=== PATIENT | female | born 1955 | race Caucasian/White ===

== ENCOUNTER 2016-09-18 10:29 | Emergency (ER) | payer SELFPAY ==
[2015-02-10 17:28] VITALS: BMI 36.0
[~2016-09-18 10:29] MED LIST: BAYER CHEWABLE81 MG PO; BYSTOLIC20 MG PO; CARDIZEM LA180 MG PO; CRESTOR10 MG PO; CYCLOBENZAPRINE10 MG PO; DIOVAN HCT 320/1 TA2 PO; NEXIUM40 MG PO; PLAVIX75 MG PO; SYNTHROID75 MCG PO; SYNTHROID88 MCG PO; TENORMIN100 MG PO; TYLENOL ARTHRI650 MG PO; VIMOVO; WELLBUTRIN100 MG PO
[2016-09-18 11:22] LABS: BASOPHILS 0.2 % (0.0-2.0); EOSINOPHILS 1.2 % (0-7); HEMATOCRIT 35.5 % (36.0-48.0); HEMOGLOBIN 11.6 g/dL (12-16); LYMPHOCYTES 22.2 % (15-50); MCH 25.6 pg (26.0-34.0); MCHC 32.7 g/dL (31.0-37.0); MCV 78.2 fL (80.0-100.0); MEAN PLATELET VOLUME 10.3 fL (7.4-10.4); MONOCYTES 5.1 % (2-11); NEUTROPHILS 70.3 % (40-80); PLATELET COUNT 269 10x3/uL (130-400); RBC 4.54 10x6/uL (4.00-5.40); RDW 15.4 % (11.5-14.5); WBC 14.1 10x3/uL (4.8-10.8)
[2016-09-18 11:35] LABS: ALBUMIN 3.4 g/dL (3.4-5.0); ALKALINE PHOSPHATASE 116 U/L (46-116); ALT (SGPT) 42 U/L (10-68); BILIRUBIN - TOTAL 0.21 mg/dL (0.2-1.3); CALC OSMOLALITY 277 mosm/kg (275-300); CALCIUM 8.6 mg/dL (8.5-10.1); CARBON DIOXIDE 23.3 mmol/L (21.0-32.0); CHLORIDE - SERUM 102 mmol/L (98-107); CREATININE - SERUM 1.2 mg/dL (0.6-1.3); GLUCOSE 90 mg/dL (74-106); POTASSIUM - SERUM 3.7 mmol/L (3.5-5.1); PROTEIN - SERUM 7.5 g/dL (6.4-8.2); SODIUM 137 mmol/L (136-145); UREA NITROGEN 23 mg/dL (7-18); eGFR NON AFRICAN AMERICAN 48 mL/min (90-120)
[2016-09-18 11:46] LABS: CHOL - HDL RATIO 2.8 ratio (2.3-4.1); CHOLESTEROL, TOTAL 212 mg/dL (0-200); CKMB 0.9 U/L (0.0-3.6); CREATINE KINASE 76 UL (21-215); HDL CHOLESTEROL 76 mg/dL (32-96); LDL CHOLESTEROL 94 mg/dL (0-100); LDL-HDL RATIO 1.2 ratio (1.5-3.5); TRIGLYCERIDE 210 mg/dL (30-200)
[2016-09-18 11:47] LABS: TROPONIN-I < 0.017 ng/mL (0.000-0.060)
--- NOTE | 2016-09-24 08:46 | CN ---
PATIENT NAME:TARYN GIRON MEDICAL RECORD: [id number] : 55 LOCATION:D.ER ADMIT DATE: ACCOUNT: [id number] CONSULTING PHYSICIAN: DAJA WEAVER MD REFERRING PHYSICIAN: DENY TURCIOS MD DATE OF CONSULTATION: 09/18/2016 Cardiology Consultation DIAGNOSES: 1. Shortness of breath, dyspnea on exertion. 2. Chest pain. 3. Coronary artery disease. 4. Previous multivessel percutaneous transluminal coronary angioplasty stent. 5. Hypertension. 6. Hyperlipidemia. HISTORY OF PRESENT ILLNESS: Ms. Giron presents with shortness of breath, fluid retention, edema and some chest pain over the past day. It is not like that of her previous angina, it is more of a labored breathing. She was taken off of hydrochlorothiazide recently for possible allergic reaction. She has not had a reaction to other diuretic. She has been given Lasix in the past with no problem. Her EKG is normal. Troponin is pending. PHYSICAL EXAMINATION: GENERAL APPEARANCE: Well-nourished, well-developed, appears stated age. Level of distress, comfortable. PSYCHIATRIC: Mental status, alert, normal affect. Orientation, oriented to time, place and person. EYES: Lids and conjunctiva, noninjected. No discharge, no pallor. ENT: Lips, teeth, gums, normal dentition. Oropharynx, no cyanosis, no pallor. NECK: Carotid arteries, bilateral normal upstroke, no bruits, no thrills. JUGULAR VEINS: No jugular venous pressure or distention. CERVICAL LYMPH NODES: Nontender, nonenlarged. THYROID: Not enlarged. Nontender. No nodules. LUNGS: Respiratory effort, unlabored. CHEST: Normal curvature. No thoracic deformity. No chest wall tenderness. Percussion, resonant. Auscultation, clear. No wheezes, no rales, no rhonchi. CARDIOVASCULAR: Precordial exam, nondisplaced. No heaves or pericardial thrills. Rate and rhythm, regular. Heart sounds, normal S1, normal S2. No S3, no gallop, no rub. Systolic murmur, not heard. Diastolic murmur, not heard. EXTREMITIES: No cyanosis, no edema. Peripheral pulses, full and equal in all extremities, except as noted. No bruits appreciated. ABDOMEN: Soft, nondistended. Normal aorta. No bruit. Nontender. No masses. Liver, nontender, no hepatomegaly. Spleen, nontender, no splenomegaly. MUSCULOSKELETAL: No joint tenderness. No joint swelling. No erythema. NEUROLOGICAL: Normal gait, normal strength, normal tone. SKIN: Warm and dry. REVIEW OF SYSTEMS: The patient reports easy bruising but reports no swollen glands. The patient reports no fever, no night sweats, no significant weight gain, no significant weight loss. No significant exercise tolerance. The patient reports no dry eyes, no irritation, no vision change. Patient reports no difficulty hearing and no ear pain. Patient reports no frequent nose bleeds or nose and sinus problems. Patient reports on arm pain on exertion. No CONSULT REPORT [id number] TARYN GIRON shortness of breath while lying down. No history of heart murmur. Patient reports no cough, no wheezing or coughing up blood. Patient reports no abdominal pain, no vomiting. Normal appetite. No diarrhea and not vomiting blood. No nausea and no constipation. Patient reports no incontinence. No difficulty urinating. No hematuria. No increased frequency. Patient reports no muscle aches. No weakness, no arthralgias, no back pain. No swelling of the extremities. Patient reports no abnormal mole, no jaundice, no rashes. Reports no loss of consciousness. No weakness and no numbness. No seizures, dizziness, or headaches. The patient reports no depression, no sleep disturbance, feeling safe in a relationship and no alcohol abuse. Patient reports on fatigue. Reports no runny nose or sinus pressure. No itching, no hives, and no frequent sneezing. OVERALL IMPRESSION: Fluid retention, shortness of breath, most likely is due to being off of her hydrochlorothiazide. We would suggest Lasix 20 mg daily if troponin is normal. Most likely, this is not recurrent anginal symptomatology. Last cardiac catheterization was a year ago. There was no restenosis at that time and no new disease. Her EKG is normal and unchanged. We will follow up in our office in the next 2-3 weeks and see how she is doing on daily Lasix therapy. TRANSINT:[id number] Voice Confirmation ID: [id number] DOCUMENT ID: [id number] DAJA WEAVER MD at 0846 CC: [id number] DICTATION DATE: 09/18/16 1121 CARE GIVER: 09/18/16 1200 DEP ER 09/18/16 [facility] [address] [place] [address]
== END 2016-09-18 12:25 | disposition home or self-care (01) ==
LOC: D.ER 10:29
PROVIDERS: Emergency Medicine
DX: I20.8 Other forms of angina pectoris (principal); R60.9 Edema, unspecified; I10 Essential (primary) hypertension

== ENCOUNTER 2017-01-29 01:08 | Observation (INO) | payer OTHER ==
[~2017-01-29] VITALS: Ht 157.5 cm; Wt 99.8 kg
--- NOTE | ~2017-01-29 | PRO ---
PATIENT:TARYN POLLOCK MEDICAL RECORD: [id number] : 55 LOCATION:D.M2 D.2118 ADMISSION DATE: 01/29/17 PROCEDURE PERFORMED BY: KEISHA OLIVA MD PROCEDURES: 1. Left heart catheterization. 2. Selective coronary angiography. 3. Percutaneous transluminal coronary angioplasty stent. LEFT HEART CATHETERIZATION/SELECTIVE CORONARY ANGIOGRAPHY: PROCEDURE IN DETAIL: After informed consent was obtained and after detailed explanation of risks, benefits, as well as alternative therapies, the patient elected to proceed with angiogram. The right femoral area was prepped and draped in a normal sterile fashion. The right femoral artery was cannulated via modified Seldinger technique with placement of 5-Icelandic sheath. All catheters exchanged through this sheath. Susana Left-4, Susana Left-5, 5-Icelandic pigtail catheter. The procedure was well-tolerated, and the patient was returned to the de luna after the sheath was removed ExoSeal device placed. FINDINGS: Left ventriculography was performed in standard 30 degree SUAREZ view, shows minimal inferior hypokinesis. Overall left ventricular function is preserved at 50% or better. CORONARY ANATOMY: 1. LEFT MAIN: The left main was free of disease. 2. LEFT ANTERIOR DESCENDING: The left anterior descending is free of disease as is the diagonal system. Area of previous stenting is widely patent. 3. CIRCUMFLEX: The circumflex is free of disease. Area of previous stenting is widely patent. 4. RIGHT CORONARY ARTERY: This is a codominant right coronary and at the mid portion of the vessel is totally occluded. IMPRESSION: Acute coronary syndrome non-ST elevation myocardial infarction secondary to total occlusion of the right coronary artery. Plan intervention to this vessel momentarily. PERCUTANEOUS TRANSLUMINAL CORONARY ANGIOPLASTY STENT: A 5-Icelandic sheath was exchanged for a 6-Icelandic sheath. A Hockey Stick guided catheter provided excellent guidance of the catheter forward. This was followed by a 300 centimeter whisper wire placed across the totally occluded right down to the tortuous vessel. Balloon was a 2.[address] Charles balloon, placed down to the distal posterior descending and advanced all the way up to the mid portion of the right coronary artery, two inflations up to 12 atmospheres for a 30 second each inflation. FINAL ANGIOGRAPHY: Shows excellent resolution of a 100% stenosis with no significant residual. MARK flow improved from 0 to 3. Plavix was loaded in the lab. Integrilin was used during the case. Sheath closure ExoSeal device. PROCEDURE NOTE [id number] TARYN POLLOCK GREGORY A MD CC: [id number] DICTATION DATE: 01/31/17 143 RECORD CHANGER ASSEMBLER: TC 01/31/17 1436 DIS IN 01/29/17 [facility] [address] [place] [address]
--- NOTE | ~2017-01-29 | HEMODYNAMI ---
PATIENT:TARYN POLLOCK MEDICAL RECORD: [id number] : 55 LOCATION:[facility] D.2118 [facility]# [id number] ADMISSION DATE: 01/29/17 Generatedon:01/29/201710:20 Patient name: TARYN POLLOCK Patient #: [id number] SSN: : 1955 Date of study: 01/29/2017 Page: Of Hemodynamic Procedure Report Patient Data Patient Demographics Procedure consent was obtained First Name: TARYN Gender: Female Last Name: PHILL : 1955 [facility] Initial: J Age: 61 year(s) Patient #: [id number] Race: Additional ID: [id number] Contact details Address: [address] [place] [address] State: [place] City: [facility] Zip code: [address] Past Medical History Allergies Allergen Reaction Date Comments Reported Penicillins 10/09/2014 Sulfa drugs 10/09/2014 Other allergy 10/09/2014 Microbid Other allergy 10/09/2014 Other allergy 10/09/2014 biaxin Other allergy 10/09/2014 clindamycin Admission Admission Data Admission Date: 01/29/2017 Admission Time: 3:21 Room #: D.2118 Lab Results Lab Result Date: 01/29/2017 Lab Result Time: 0:00 Biochemistry Name Units Result Min Max BUN mg/dl 15 --(--*-)-- 7 18 Creatinine mg/dl 1.3 --(---*)-- 0.6 1.3 CBC Name Units Result Min Max Hemoglobin g/dl 11.2 *-(----)-- 13.5 17.5 Procedure Procedure Types Cath Procedure Diagnostic Procedure LHC LHC w/Coronaries PCI Procedure PTCA Initial Miscellaneous Procedures Moderate Sedation up to 30 minutes Procedure Description Procedure Date Procedure Date: 01/29/2017 Procedure Start Time: 9:56 Procedure End Time: 10:19 Procedure Staff Name Function Hernandez Ann MD Performing Physician Georgia Ortiz RN Nurse Phil Nguyen RT Monitor Giovanna Dobbins RT Scrub Procedure Data Cath Procedure Fluoroscopy Diagnostic fluoroscopy Total fluoroscopy Time: 4.6 time: 4.6 min min Diagnostic fluoroscopy Total fluoroscopy dose: 587 dose: 587 mGy mGy Contrast Material Contrast Material Type Amount (ml) Isovue 300 91 Entry Location Entry Primary Successful Side Size Upsize Upsize Entry Closure Succes sful Closure Location (Fr) 1 (Fr) 2 (Fr) Remarks Device Remarks Femoral Right 5 Fr 6 Fr Exoseal artery Short Estimated blood loss: 10 ml Diagnostic catheters Device Type Used For End Catheter Placement Cordis 5Fr JL 4.0 Procedure Catheter (MP) Cordis 5Fr 3DRC Catheter Procedure (MP) Cordis 5Fr Pigtail Procedure Catheter (MP) Procedure Complications No complications Procedure Medications Medication Administration Route Dosage Oxygen NC 2 l/min Heparin Flush Bag added to field 2 bags (1000units/500ml NS) Lidocaine 2% added to field 20 Versed I.V. 1 mg Fentanyl I.V. 50 mcg Plavix P.O. 600 mg Versed I.V. 1 mg Fentanyl I.V. 50 mcg Heparin Bolus I.V. 5000 units Integrilin (Bolus I.V. 9 ml 2mg/ml) Hemodynamics Rest HGB: 11.2 (g/dl) Heart Rate: 67 (bpm) Pressure Samples Time Site Value (mmHg) Purpose Heart Use Rate(bpm) 10:02 LV 153/15,19 Snapshot 72 10:07 AO 128/80(103) Snapshot 71 Gradients Valve Time Site Site Mean SEP/DFP Peak To Heart Use 1 2 (mmHg) (sec/min) Peak Rate (mmHg) (bpm) Aortic 10:02 LV AO 72 Snapshots Pre Cath Intra NCS Post Cath Vital Signs Time Heart Resp SPO2 etCO2 [id number] NIBP (mmHg) Rhythm Pain Sedation Rate (ipm) (%) (mmHg) (mmHg) Status Level (bpm) 9:42:02 69 14 97 0 0 153/90(114) NSR 0 (11) 10(A) , No pain 9:46:22 67 16 94 0 0 156/93(122) NSR 0 (11) 10(A) , No pain 9:50:38 63 16 96 0 0 145/91(123) NSR 0 (11) 10(A) , No pain 9:54:56 65 19 96 0 0 149/88(117) NSR 0 (11) 9(A) , No pain 9:59:12 68 15 96 0 0 143/95(127) NSR 0 (11) 9(A) , No pain 10:03:26 71 15 96 0 0 136/96(124) NSR 0 (11) 9(A) , No pain 10:07:40 72 13 96 0 0 144/91(111) NSR 0 (11) 9(A) , No pain 10:11:56 73 14 97 0 0 136/82(125) NSR 0 (11) 9(A) , No pain 10:16:10 70 14 97 0 0 133/91(122) NSR 0 (11) 9(A) , No pain Medications Time Medication Route Dose Verified Delivered Reason Notes Effectiveness by by 9:41:00 Plavix P.O. 600 Hernandez [place] for mg [facility]. Pablo Ortiz RN antiplatelet therapy 9:41:24 Oxygen NC 2 Hernandez Georgia Per physician l/min St. Pablo Ortiz RN, MD 9:41:33 Heparin Flush added 2 Hernandez Hernandez used for Bag to bags [facility] procedure (1000units/500ml field MD CRAWFORD NS) 9:41:40 Lidocaine 2% added 20ml Hernandez Hernandez used for to vial [facility] procedure field MD CRAWFORD 9:47:14 Versed I.V. 1 mg Hernandez [place] for sedation [facility]. Pablo Ortiz RN, MD 9:47:19 Fentanyl I.V. 50 Hernandez Georgia for sedation mcg [facility]. Pablo Ortiz RN, MD 9:50:34 Versed I.V. 1 mg Hernandez [place] for sedation [facility]. Pablo Ortiz RN, MD 9:50:36 Fentanyl I.V. 50 Hernandez [place] for sedation mcg [facility]. Pablo Ortiz RN, MD 10:04:13 Heparin Bolus I.V. 5000 Hernandez Georgia for dose units [facility]. Pablo Ortiz RN anticoagulation verified MD dee menchaca 10:06:35 Integrilin I.V. 9 ml Hernandez [place] for wasted 1 (Bolus 2mg/ml) St. Pablo Ortiz RN antiplatelet ml therapy Procedure Log Time Note 9:13:31 Phil Nguyen RT(R) sent for patient. Start room use. 9:13:33 Time tracking: Regular hours 9:13:37 Plan of Care:Hemodynamics will remain stable., Cardiac rhythm will remain stable., Comfort level will be maintained., Respiratory function will remain adequate., Patient/ family verbilizes understanding of procedure., Procedure tolerated without complication., Recovers from procedure without complications.. 9:28:20 Patient received from PCU to CCL 1 Alert and oriented. Tansferred to table in Supine position. 9:28:39 H&P Date Dictated: 01/28/2017 Within 30 days and on chart.. 9:30:42 Lab Result : BUN 15 mg/dl 9::42 Lab Result : Creatinine 1.3 mg/dl 9::42 Lab Result : Hemoglobin 11.2 g/dl 9:35:58 Warm blankets applied, and oliver hugger turned on for patient comfort. 9:35:59 Correct patient and procedure confirmed by team. 9:36:01 Signed procedure consent form obtained from patient. 9:40:52 ECG and BP/O2 sat monitors applied to patient. 9:40:57 Vital chart was started 9:41:00 Plavix 600 mg P.O. was administered by Georgia Ortiz RN; for antiplatelet therapy; 9:41:00 Baseline sample Acquired. 9:41:04 Rhythm: sinus rhythm 9:41:06 Full Disclosure recording started 9:41:08 Pre-procedure instructions explained to patient. 9:41:15 Family in waiting room. 9:41:18 Patient NPO since Midnight. 9:41:24 Oxygen 2 l/min NC was administered by Georgia Ortiz RN; Per physician; 9:41:26 Is patient on blood thinner?No 9:41:30 Patient diabetic? No. 9:41:33 Heparin Flush Bag (1000units/500ml NS) 2 bags added to field was administered by Hernandez Ann MD; used for procedure; 9:41:34 Snore? Yes 9:41:35 Sleep apnea? Yes 9:41:40 Lidocaine 2% 20ml vial added to field was administered by Hernandez Ann MD; used for procedure; 9:41:45 Airway obstruction? No ? 9:41:52 Dentures? Yes in tight 9:42:06 Patient pain scale 0/10 ?. 9:42:16 IV patent on arrival in right forearm with 0.9% NaCl at [facility]. 9:42:20 Lab results completed and on chart. 9:42:24 Right groin area was prepped with chlora-prep and draped in sterile fashion 9:42:26 Alarms reviewed by R. N. 9:42:27 Sharps counted by scrub and verified by R.N. 9:42:29 Physician arrived 9:43:31 Use device set Femoral Dx 9:43:33 Acist Syringe opened to sterile field. 9:43:33 Bag Decanter opened to sterile field. 9:43:34 Medline Cath Pack opened to sterile field. 9:43:36 Acist Hand Control opened to sterile field. 9:43:37 Acist Manifold opened to sterile field. 9:43:38 Tegaderm 4 x 4 opened to sterile field. 9:46:30 --------ALL STOP TIME OUT------ 9:46:31 Final Timeout: patient, procedure, and site verified with staff and physician. All members of the team are in agreement. 9:46:33 Right groin site verified by team. 9:46:40 Physical assessment completed. ASA score P 2 - A patient with mild systemic disease as per Hernandez Ann MD. 9:46:43 Sedation plan: IV Moderate Sedation Versed, Fentanyl 9:47:14 Versed 1 mg I.V. was administered by Georgia Ortiz RN; for sedation; 9:47:19 Fentanyl 50 mcg I.V. was administered by Georgia Ortiz RN; for sedation; 9:50:34 Versed 1 mg I.V. was administered by Georgia Ortiz RN; for sedation; 9:50:36 Fentanyl 50 mcg I.V. was administered by Georgia Ortiz RN; for sedation; 9:52:05 St Adithya 260cm J .035 wire opened to sterile field. 9:52:07 Terumo 5Fr [place] Sheath opened to sterile field. 9:52:11 Diagnostic Infinity 5Fr Multipack catheter opened to sterile field. 9:56:09 Procedure started. 9:56:19 Local anesthetic to right femoral artery with Lidocaine 2% by Hernandez Ann MD.INITIAL ACCESS ONLY 9:57:24 Zero performed for pressure channel P1 9:57:53 Baseline sample Acquired. 9:58:05 A 5 Fr sheath was inserted into the Right Femoral artery 9:58:38 A Cordis 5Fr JL 4.0 Catheter (MP) was advanced over the wire and used for Procedure. 9:58:59 LCA angiography performed. 9:59:51 Catheter removed. 10:00:05 A Cordis 5Fr 3DRC Catheter (MP) was advanced over the wire and used for Procedure. 10:00:53 RCA angiography performed. 10:01:14 RCA occluded in the mid portion. 10:01:17 Catheter removed. 10:01:28 A Cordis 5Fr Pigtail Catheter (MP) was advanced over the wire and used for Procedure. 10:01:49 Fishin' Glue 6Fr [place] Sheath opened to sterile field. 10:01:49 Owens Gan & Lee Pharmaceuticalisper J 300cm 0.014 guide wire opened to sterile field. 10:01:50 Phoenix BooksixCompak Inflation Kit opened to sterile field. 10:01:50 Creative Citizen Launcher 6Fr HS I SH guide catheter opened to sterile field. 10:03:26 LV angiography performed. 10:03:34 LV gram done using SUAREZ 10:03:41 EF : 55 % 10:03:42 LV hemodynamics recorded. 10:03:45 Injector settings: Ml/sec: 10, Volume: 20, 10:03:48 Catheter removed. 10:03:58 Sheath upsized to a 6 Fr Short. 10:04:10 6 Fr HS 1 SH guide catheter was inserted over the wire 10:04:13 Heparin Bolus 5000 units I.V. was administered by Georgia Ortiz RN; for anticoagulation; dose verified wt dr menchaca 10:04:15 ACC PCI Site: mRCA has 100% stenosis. 10:04:17 ACC Pre-intervention MARK Flow is 0. 10:06:30 Whisper wire advanced. 10:06:35 Integrilin (Bolus 2mg/ml) 9 ml I.V. was administered by Georgia Ortiz RN; for antiplatelet therapy; wasted 1 ml 10:07:00 Wire advanced across lesion. 10:07:47 Inflation number: 1 A Roller Warrick 2.5 X 15 balloon was prepped and advanced across the Mid RCA, then inflated to 10 ASLOME for 0:30 (min:sec). 10:08:48 Inflation number: 2 The Selma Sci Warrick 2.5 X 15 balloon was reinflated across the Mid RCA, to 12 SALOME for 0:30 (min:sec). 10:10:02 Inflation number: 1 The Selma Sci Warrick 2.5 X 15 balloon was reinflated across the Dist RCA, to 8 SALOME for 0:30 (min:sec). 10:10:26 Multiple inflations made at 8 Atms to the Distal RCA. 10:11:27 ACC Post-intervention MARK Flow is 3. 10:11:34 Balloon removed over the wire. 10:11:34 Wire removed. 10:11:35 Guide catheter removed. 10:11:47 Cordis 6Fr Exoseal opened to sterile field. 10:11:57 Sheath removed intact; hemostasis achieved with Exoseal to the Right Femoral artery. 10:12:00 Procedure ended.(Physican Out) 10:12:11 Fluoroscopy time 04.60 minutes. 10:12:14 Fluoroscopy dose: 587 mGy 10:12:14 Flurop Dose total: 587 10:12:18 Contrast amount:Isovue 300 91ml. 10:12:20 Sharps counted by scrub and verified by R.N. 10:12:23 Insertion/operative site no bleeding no hematoma. 10:12:27 Post-op/insertion site Right Femoral artery dressed using a 4 x 4 and Tegaderm. 10:12:29 Post Procedure Pulses reassessed and unchanged 10:12:32 Post-procedure physical assessment completed. ASA score P 2 - A patient with mild systemic disease as per Hernandez Ann MD. 10:12:35 Post procedure rhythm: unchanged. 10:12:38 Estimated blood loss: 10 ml 10:12:39 Post procedure instruction explained to patient.Patient verbalizes understanding. 10:12:40 Patient needs reinforcement of post procedure teaching. 10:12:49 Procedure type changed to Cath procedure, Diagnostic procedure, LHC, LHC w/Coronaries, PCI procedure, PTCA Initial, Miscellaneous Procedures, Moderate Sedation up to 30 minutes 10:12:53 Procedure Complication : No complications 10:12:56 Procedure and supply charges have been captured, reviewed, submitted and are correct. 10:19:19 Vital chart was stopped 10:19:20 See physician's report for complete and final results. 10:19:21 Report given to PCU. 10:19:24 Patient transfered to PCU with Bed. 10:19:27 Procedure ended. 10:19:27 Full Disclosure recording stopped 10:19:47 End room use (Document Last) Intervention Summary Intervention Notes Time ActionType Lesion and Equipment Action# Pressure Duration Attributes Used 10:07:47 Inflate Mid RCA Selma 1 10 00:30 balloon Sci Warrick 2.5 X 15 balloon 10:08:48 Reinflate Mid RCA Selma 2 12 00:30 balloon Sci Warrick 2.5 X 15 balloon 10:10:02 Reinflate Dist RCA Selma 1 8 00:30 balloon Sci Warrick 2.5 X 15 balloon Device Usage Item Name Manufacture Quantity Catalog Number Hospital Part Current Mini mal Lot# / Charge Number Stock Stock Serial# Code Acist Acist 1 [id number] [id number] [id number] [id number] 20 Syringe Medical Systems Inc Bag Microtek 1 [id number] 416286 16581 360518 5 Glooko Inc. Medline Cardinal 1 [id number] 355853 88242 807078 5 Cath Pack Health Acist Hand Acist 1 02780 655547 363124 057972 5 Control Medical Systems Inc Acist Acist 1 42128 465344 823016 450456 5 Manifold Medical Systems Inc Tegaderm 4 3M 1 1626W 636216 594922 653765 [address] Adithya 1 700653 977967 994627 895787 30 260cm J .035 wire Terumo 5Fr Terumo 1 [id number] 841634 110503 567084 40 Rockport Sheath Diagnostic Cardinal 1 [id number] 615387 73104 342053 30 Infinity Health 5Fr Multipack catheter Cordis 5Fr Cardinal 1 925511 5 JL 4.0 Health Catheter (MP) Cordis 5Fr Cardinal 1 505315 5 3DRC Health Catheter (MP) Cordis 5Fr Cardinal 1 082938 5 Pigtail Health Catheter (MP) Terumo 6Fr Terumo 1 [id number] 005099 093470 179677 40 [place] Sheath Owens Owens 1 [id number] 309113 989261 572336 5 Whisper J Vascular 300cm 0.014 guide wire Merit Merit 1 [id number] 805633 817253 936750 15 [employer] Medical Inflation Kit Medtronic Medtronic 1 [id number] 964582 04619 901255 1 Launcher 6Fr HS I SH guide catheter Selma Sci Selma 1 [id number] 135039 099633 106427 1 Atamasoft 2.5 X 15 balloon Cordis 6Fr Cardinal 1 [id number] 200347 326968 421752 10 [facility] [employer] Signature Audit Spencer Stage Time Signature Unsigned Intra-Procedure 01/29/2017 Phil Nguyen 10:20:00 AM RT(R) Signatures Monitor : Phil Nguyen RT Signature : Date : Time : [address] [place] [address]
[~2017-01-29 01:08] MED LIST changes: +BUPROPION XL300 MG PO; -WELLBUTRIN100 MG PO
[2017-01-29 01:33] LABS: BASOPHILS 0.3 % (0-2); EOSINOPHILS 1.3 % (0-7); HEMATOCRIT 37.4 % (36.0-48.0); HEMOGLOBIN 12.2 g/dL (12-16); IMMATURE GRANULOCYTES 0.3 % (0-5); LYMPHOCYTES 20.6 % (15-50); MCH 25.5 pg (26.0-34.0); MCHC 32.6 g/dL (31.0-37.0); MCV 78.2 fL (80.0-100.0); MEAN PLATELET VOLUME 10.1 fL (7.4-10.4); MONOCYTES 5.3 % (2-11); NEUTROPHILS 72.2 % (40-80); PLATELET COUNT 314 10x3/uL (130-400); RBC 4.78 10x6/uL (4.00-5.40); RDW 15.3 % (11.5-14.5)
[2017-01-29 01:48] LABS: ALBUMIN 3.4 g/dL (3.4-5.0); ALKALINE PHOSPHATASE 114 U/L (46-116); ALT (SGPT) 34 U/L (10-68); BILIRUBIN - TOTAL 0.28 mg/dL (0.2-1.3); CALC OSMOLALITY 284 mosm/kg (275-300); CALCIUM 8.7 mg/dL (8.5-10.1); CARBON DIOXIDE 39.4 mmol/L (21.0-32.0); CHLORIDE - SERUM 97 mmol/L (98-107); CREATININE - SERUM 1.3 mg/dL (0.6-1.3); GLUCOSE 98 mg/dL (74-106); PROTEIN - SERUM 7.8 g/dL (6.4-8.2); SODIUM 142 mmol/L (136-145); UREA NITROGEN 17 mg/dL (7-18); eGFR NON AFRICAN AMERICAN 44 mL/min (90-120)
[2017-01-29 02:06] LABS: AMYLASE - SERUM 69 U/L (25-115); CKMB 4.3 U/L (0.0-3.6); CREATINE KINASE 150 UL (21-215); LIPASE 168 U/L (73-393)
[2017-01-29 02:07] LABS: TROPONIN-I 0.627 ng/mL (0.000-0.060)
--- NOTE | 2017-01-29 04:05 | NUR ---
RECIEVED TO ROOM 2117 FROM ER VIA WC. PT A&O. RESPERATIONS EVEN ON AT 2 LITERS VIA MT. TO RIGHT AC SL, SITE CLEAN AND DRY. PLACED ON TELEMETRY, 76 SR PER MT. PT DAUGHTER AT BED SIDE, RECLINER CHAIR TAKEN TO ROOM FOR DAUGHTERS CONVIENCE. NO OTHER NEEDS AT THIS TIME, BED LOW, CL IN REACH.
[2017-01-29] MEDS ORDERED: DIOVAN320 MG PO (04:09)
[2017-01-29] MEDS ORDERED: ISOSORBIDE DINI30 MG PO (04:12)
[2017-01-29] MEDS ORDERED: MELATONIN10 M1 PO (04:12)
[2017-01-29] MEDS ORDERED: ALEVE220 MG PO (04:13)
[2017-01-29] MEDS ORDERED: EXCEDRIN CAPLET1 TAB PO (04:13)
[2017-01-29] MEDS ORDERED: PROBIOTIC1 EAC1 PO (04:13)
[2017-01-29] MEDS ORDERED: CLARITIN 10 MG10 MG PO (04:13)
[2017-01-29] MEDS ORDERED: K-TAB10 MEQ PO (04:32)
[2017-01-29] MEDS ORDERED: LASIX40 MG PO (04:32)
[2017-01-29 05:13] VITALS: BMI 40.3
--- NOTE | 2017-01-29 05:54 | NUR ---
MORPHINE 4 MG AND ZOFRN 4 MG GIVEN FOR C/O PAIN AND NAUSEA.
--- NOTE | 2017-01-29 07:23 | NUR ---
CONSENTS SIGNED FOR HEART CATH TROP 4.226 PT DENIES ANY CHEST DISCOMFORT AT THIS TIME NAD NOTED
[2017-01-29 08:00] VITALS: BP 134/88
[2017-01-29 08:21] LABS: BASOPHILS 0.3 % (0-2); EOSINOPHILS 1.7 % (0-7); HEMOGLOBIN 11.2 g/dL (12-16); IMMATURE GRANULOCYTES 0.3 % (0-5); LYMPHOCYTES 24.5 % (15-50); MCH 25.4 pg (26.0-34.0); MCV 79.4 fL (80.0-100.0); MONOCYTES 8.4 % (2-11); NEUTROPHILS 64.8 % (40-80); PLATELET COUNT 298 10x3/uL (130-400); RBC 4.41 10x6/uL (4.00-5.40); RDW 15.5 % (11.5-14.5); WBC 9.2 10x3/uL (4.8-10.8)
[2017-01-29 08:28] LABS: ANION GAP 10.8 mmol/L (8-16); CALCIUM 8.4 mg/dL (8.5-10.1); CARBON DIOXIDE 33.2 mmol/L (21.0-32.0); CREATININE - SERUM 1.3 mg/dL (0.6-1.3)
--- NOTE | 2017-01-29 09:35 | NUR ---
PT TO BARREL POLISHER VIA BED IN STABLE CONDITION
--- NOTE | 2017-01-29 10:40 | NUR ---
RECEIVED PT BACK FROM [employer] VIA BED VSS RT GROIN DRSG C/D/I PPP X4 NO SIGNS OF BLEEDING PT DENIES ANY NEEDS
[2017-01-29 12:00] VITALS: BP 122/75
[2017-01-29 14:39] VITALS: Ht 157.5 cm; Wt 99.8 kg
--- NOTE | 2017-01-29 15:00 | NUR ---
REVEIEWED DISCHARGE INSTRUCTIONS WITH PT STATES UNDERSTANDING COPOY GIVEN SALINE LOCK DCD TO RAC WITH 20 GA IV CATH INTACT SITE FREE OF REDNESS OR EDEMA
--- NOTE | 2017-01-29 16:00 | NUR ---
PT DISCHARGED HOME PT LEFT UNIT IN STABLE CONDITION VIA W/C WITH ALL PERSONAL BELONGINGS
--- NOTE | 2017-01-30 08:49 | HP ---
PATIENT: TARYN POLLOCK MEDICAL RECORD: [id number] ACCOUNT: [id number] LOCATION:[address] : 55 ADMISSION DATE: 01/29/17 HISTORY AND PHYSICAL EXAMINATION HISTORY AND PHYSICAL PROBLEM LIST: 1. Coronary artery disease status post intervention. 2. Angina. 3. Acute coronary syndrome/non-ST elevation myocardial infarction. 4. Hypertension. 5. Osteoarthritis. 6. Gastroesophageal reflux disease. 7. Hypothyroidism on replacement. HISTORY OF COURSE: This is a 61-year-old lady with a history of coronary artery disease status post intervention via Dr. Contreras admitted with chest pressure and tightness consistent with previous angina. She was found to have elevated troponin consistent with non-ST elevation myocardial infarction. She was admitted for further evaluation. PAST MEDICAL HISTORY: 1. History of hypertension. 2. Hypothyroidism on replacement. 3. Dyslipidemia. 4. Coronary artery disease as described above. 5. Osteoarthritis. SOCIAL HISTORY: She lives here in [place]. She is a nonsmoker. She usually takes care of her activities of daily living. No set exercise program. CURRENT MEDICATIONS: 1. Claritin 10 milligrams by mouth every day. 2. Flexeril 10 milligrams by mouth twice a day. 3. Diltiazem 180 milligrams every day. 4. Atenolol 100 milligrams every day. 5. Imdur 30 milligrams every day. 6. Valsartan 320 milligrams every day. 7. Aspirin 81 milligrams every day. 8. Wellbutrin 450 milligrams every day. 9. Lasix 20 milligrams as needed. 10. Synthroid 88 micrograms every day. DICTATED BY: Jacob Ann MD MR # [id number] NAME TARYN POLLOCK PAGE 2 PHYSICAL EXAMINATION: GENERAL: She is a pleasant female in no acute distress. She appears her stated age. VITAL SIGNS: Blood pressure: 138/88. Pulse: 71 and regular. HEAD, EYES, EARS, NOSE, AND THROAT: Normocephalic, atraumatic. NECK: No bruits noted. HISTORY AND PHYSICAL [id number] TARYN POLLOCK HEART: Regular. LUNG: Clear. ABDOMEN: Soft, nontender. PULSES: 2+ no edema. ELECTROCARDIOGRAM: Shows nonspecific ST-T changes. LABORATORY FINDINGS: Hypokalemia with a potassium of 3. Other electrolytes consistent with contraction alkalosis. PLAN: Will replace potassium and hydrate and plan for diagnostic angiography in the near future. KEISHA OLIVA MD at 0849 CC: [id number] DICTATION DATE: 01/29/1742 GENERATION MANAGER: TC 01/30/1741 DIS IN 01/29/17 [id number] [place] [address]
== END 2017-01-29 16:00 | disposition home or self-care (01) ==
LOC: D.ER 01:08 → D.M2 03:21 → OBSVTIME 03:21 → D.M2 03:21
PROVIDERS: Emergency Medicine; ADMIT Internal Medicine Interventional Cardiology
DX: I21.4 Non-ST elevation (NSTEMI) myocardial infarction (principal); I25.119 Atherosclerotic heart disease of native coronary artery with unspecified angina pectoris; Z95.5 Presence of coronary angioplasty implant and graft; I10 Essential (primary) hypertension; M19.90 Unspecified osteoarthritis, unspecified site; E78.5 Hyperlipidemia, unspecified; K21.9 Gastro-esophageal reflux disease without esophagitis; E03.9 Hypothyroidism, unspecified; E87.6 Hypokalemia

== ENCOUNTER 2017-11-25 08:34 | Outpatient (CLI) | payer BC ==
[~2017-11-25] VITALS: Ht 157.5 cm; Wt 96.4 kg
--- NOTE | ~2017-11-25 | HEMODYNAMI ---
PATIENT:TARYN POLLOCK MEDICAL RECORD: [id number] : 55 LOCATION:[place] ADMISSION DATE: 11/25/17 Generatedon:11/25/201713:41 Patient name: TARYN POLLOCK Patient #: [id number] SSN: : 1955 Date of study: 11/25/2017 Page: Of Hemodynamic Procedure Report Patient Data Patient Demographics Procedure consent was obtained First Name: TARYN Gender: Female Last Name: PHILL : 1955 [facility] Initial: J Age: 62 year(s) Patient #: [id number] Race: Additional ID: [id number] Contact details Address: [address] [place] [address] State: [place] City: [facility] Zip code: [address] Past Medical History Allergies Allergen Reaction Date Comments Reported Penicillins 10/09/2014 Sulfa drugs 10/09/2014 Other allergy 10/09/2014 Microbid Other allergy 10/09/2014 Other allergy 10/09/2014 biaxin Other allergy 10/09/2014 clindamycin Admission Admission Data Admission Date: 11/25/2017 Admission Time: 8:34 Procedure Procedure Types Cath Procedure Diagnostic Procedure C LHC w/Coronaries PCI Procedure Coronary Stent Procedure Description Procedure Date Procedure Date: 11/25/2017 Procedure Start Time: 13:27 Procedure End Time: 13:38 Procedure Staff Name Function Haseeb Contreras MD Performing Physician Giovanna Dobbins RT Monitor Simran Basurto RT Scrub Oziel Jordan RN Nurse Procedure Data Cath Procedure Fluoroscopy Diagnostic fluoroscopy Total fluoroscopy Time: 2.8 time: 2.8 min min Diagnostic fluoroscopy Total fluoroscopy dose: 499 dose: 499 mGy mGy Contrast Material Contrast Material Type Amount (ml) Isovue 300 75 Entry Location Entry Primary Successful Side Size Upsize Upsize Entry Closure Succes sful Closure Location (Fr) 1 (Fr) 2 (Fr) Remarks Device Remarks Femoral Right 5 Fr Exoseal artery Estimated blood loss: 10 ml Diagnostic catheters Device Type Used For End Catheter Placement MULTIPACK Pigtail 5 Fr Procedure catheter MULTIPACK JL 4.0 5Fr Procedure catheter MULTIPACK 3DRC 5Fr Procedure catheter Procedure Complications No complications Procedure Medications Medication Administration Route Dosage Oxygen etCO2 Nasal cannula 2 l/min Heparin Flush Bag added to field 2 bags (1000units/500ml NS) 0.9% NaCl I.V. 100 ml/hr Fentanyl I.V. 50 mcg Versed I.V. 1 mg Versed I.V. 1 mg Fentanyl I.V. 50 mcg Fentanyl I.V. 50 mcg Fentanyl I.V. 50 mcg Heparin Bolus I.V. 4000 units Hemodynamics Rest Heart Rate: 68 (bpm) Snapshots Pre Cath Intra NCS Post Cath Vital Signs Time Heart Resp SPO2 etCO2 NIBP (mmHg) Rhythm Pain Sedation Rate (ipm) (%) (mmHg) Status Level (bpm) 12:45:50 68 17 98 0 139/84(124) NSR 0 (11) 10(A) , No pain 12:49:55 64 16 98 17.9 97/81(93) NSR 0 (11) 10(A) , No pain 12:54:42 67 23 96 23.2 148/86(122) NSR 0 (11) 10(A) , No pain 12:58:58 66 16 91 28.4 135/84(115) NSR 0 (11) 10(A) , No pain 13:03:12 66 15 96 28.4 128/80(111) NSR 0 (11) 10(A) , No pain 13:07:26 68 16 94 31.4 129/77(109) NSR 0 (11) 10(A) , No pain 13:11:40 67 17 94 30.7 131/80(111) NSR 0 (11) 10(A) , No pain 13:16:27 69 16 94 21.7 140/83(115) NSR 0 (11) 10(A) , No pain 13:20:43 65 17 96 32.2 115/74(97) NSR 0 (11) 10(A) , No pain 13:24:53 65 16 94 12.7 128/78(109) NSR 0 (11) 10(A) , No pain 13:29:03 67 16 93 28.4 132/80(109) NSR 0 (11) 9(A) , No pain 13:33:19 68 16 90 29.9 133/78(99) NSR 0 (11) 9(A) , No pain 13:37:37 73 17 95 33.7 133/82(109) NSR 0 (11) 9(A) , No pain Medications Time Medication Route Dose Verified Delivered Reason Notes Effectiveness by by 12:53:12 Oxygen etCO2 2 Haseeb Ludwig Per physician Nasal l/min Ben Jordan RN cannula 12:53:21 Heparin Flush added 2 Haseeb Ludwig used for Bag to bags Ben Jordan RN procedure (1000units/500ml field NS) 12:53:29 0.9% NaCl I.V. 100 Haseeb Emmanuely Per physician ml/hr Ben Jordan RN 13:23:22 Fentanyl I.V. 50 Haseeb Oziel for sedation mcg Ben Jordan RN 13:23:30 Versed I.V. 1 mg Haseeb Emmanuely for sedation Ben Jordan RN 13:25:28 Fentanyl I.V. 50 Haseeb Oziel for sedation mcg Ben Jordan RN 13:26:02 Versed I.V. 1 mg Haseeb Emmanuely for sedation Ben Jordan RN 13:29:50 Fentanyl I.V. 50 Haseeb Oziel for sedation mcg Ben Jordan RN 13:34:22 Fentanyl I.V. 50 Haseeb Oziel for sedation mcg Ben Jordan RN 13:34:33 Heparin Bolus I.V. 4000 Haseeb Oziel for units Ben Jordan RN anticoagulation Procedure Log Time Note 12:30:40 Simran Basurto RT(R) sent for patient. Start room use. 12:37:46 Time tracking: Regular hours (M-F 7:00 - 5:00) 12:37:50 Plan of Care:Hemodynamics will remain stable., Cardiac rhythm will remain stable., Comfort level will be maintained., Respiratory function will remain adequate., Patient/ family verbilizes understanding of procedure., Procedure tolerated without complication., Recovers from procedure without complications.. 12:37:55 Patient received from Pre/Post Procedure Room to [facility] 2 Alert and oriented. Tansferred to table in Supine position. 12:37:56 Warm blankets applied, and oliver hugger turned on for patient comfort. 12:37:56 Correct patient and procedure confirmed by team. 12:37:58 Signed procedure consent form obtained from patient. 12:44:40 ECG and BP/O2 sat monitors applied to patient. 12:44:42 Vital chart was started 12:44:58 Baseline sample Acquired. 12:45:03 Rhythm: sinus rhythm 12:45:05 Full Disclosure recording started 12:45:23 H&P Date Dictated: 11/10/2017 Within 30 days and on chart., H&P Addendum completed by physician on day of procedure. (MUST COMPLETE FOR ALL OUTPATIENTS). 12:45:25 Pre-procedure instructions explained to patient. 12:45:27 Family in waiting room. 12:45:28 Patient NPO since Midnight. 12:45:38 Is the patient allergic to Iodine/contrast media? No. 12:45:40 Was the patient premedicated? Yes 12:45:41 Is patient on blood thinner?Yes 12:45:56 Patient diabetic? No. 12:46:01 Snore? Yes 12:46:02 Sleep apnea? Yes 12:46:07 Airway obstruction? No ? 12:46:15 Dentures? No ? 12:46:30 IV patent on arrival in left forearm with 0.9% NaCl at [facility]. 12:46:36 Lab results completed and on chart. 12:46:40 Right groin area was prepped with chlora-prep and draped in sterile fashion 12:46:42 Alarms reviewed by R. N. 12:46:42 Sharps counted by scrub and verified by R.N. 12:46:45 Physician paged 12:53:12 Oxygen 2 l/min etCO2 Nasal cannula was administered by Oziel Jordan RN; Per physician; 12:53:21 Heparin Flush Bag (1000units/500ml NS) 2 bags added to field was administered by Oziel Jordan RN; used for procedure; 12:53:29 0.9% NaCl 100 ml/hr I.V. was administered by Oziel Jordan RN; Per physician; 13:08:13 Zero performed for pressure channel P1 13:23:19 Physician arrived 13:23:19 --------ALL STOP TIME OUT------ 13:23:20 Final Timeout: patient, procedure, and site verified with staff and physician. All members of the team are in agreement. 13:23:22 Fentanyl 50 mcg I.V. was administered by Oziel Jordan RN; for sedation; 13:23:24 Right groin site verified by team. 13:23:28 Physical assessment completed. ASA score P 2 - A patient with mild systemic disease as per Haseeb Contreras MD. 13:23:30 Versed 1 mg I.V. was administered by Oziel Jordan RN; for sedation; 13:23:32 Sedation plan: IV Moderate Sedation Medication:Versed, Fentanyl 13:25:28 Fentanyl 50 mcg I.V. was administered by Oziel Jordan RN; for sedation; 13:26:02 Versed 1 mg I.V. was administered by Oziel Jordan RN; for sedation; 13:27:34 Procedure started. 13:27:37 Local anesthetic to right femoral artery with Lidocaine 2% by Haseeb Contreras MD.INITIAL ACCESS ONLY 13:27:58 A 5 Fr sheath was inserted into the Right Femoral artery 13:28:14 Use device set Femoral Dx 13:28:17 ACIST Syringe (86773) opened to sterile field. 13:28:17 Bag Decanter (2002S) opened to sterile field. 13:28:17 Medline Cath Pack ([id number]) opened to sterile field. 13:28:18 DIAGNOSTIC WIRE .035 260cm J wire (147249) opened to sterile field. 13:28:19 ACIST Hand Control (36187) opened to sterile field. 13:28:20 ACIST Manifold (00974) opened to sterile field. 13:28:20 DIAGNOSTIC Multipack 5Fr catheter set (CZ4876) opened to sterile field. 13:28:21 Tegaderm 4 x 4 (1626W) opened to sterile field. 13:28:23 PERCUTANEOUS ENTRY 19GA needle opened to sterile field. 13:28:24 SHEATH Prelude 5Fr 0.035 (HEU-6L-44-035) opened to sterile field. 13:28:39 A MULTIPACK Pigtail 5 Fr catheter was advanced over the wire and used for Procedure. 13:28:53 LV gram done using SUAREZ 13:28:59 EF : 55 % 13:29:05 Catheter removed. 13:29:17 A MULTIPACK JL 4.0 5Fr catheter was advanced over the wire and used for Procedure. 13:29:42 LCA angiography performed. 13:29:47 Catheter removed. 13:29:50 Fentanyl 50 mcg I.V. was administered by Oziel Jordan RN; for sedation; 13:30:04 A MULTIPACK 3DRC 5Fr catheter was advanced over the wire and used for Procedure. 13:31:44 GUIDE 6FR XBLAD 3.5 catheter ([id number]) opened to sterile field. 13:31:45 INFLATOR Merit BasixCompak (XX2454) opened to sterile field. 13:31:46 CHOICE PT Extra Support 182cm wire ([id number]) opened to sterile field. 13:31:50 SHEATH 6Fr Prelude ([id number]) opened to sterile field. 13:32:48 6 Fr xblad guide catheter was inserted over the wire 13:33:09 Catheter removed. unable to cannulate vessel. 13:33:49 GUIDE 6FR EBU 3.0 catheter (XX3GXW92) opened to sterile field. 13:34:06 6 Fr EBU3 guide catheter was inserted over the wire 13:34:13 choice pt wire advanced. 13:34:18 Wire advanced across lesion. 13:34:22 Fentanyl 50 mcg I.V. was administered by Oziel Jordan RN; for sedation; 13:34:33 Heparin Bolus 4000 units I.V. was administered by Oziel Jordan RN; for anticoagulation; 13:35:18 Place stent Inflation Number: 1 A TRISTA RX 2.5 x 15 stent ([id number]) was prepped and advanced across the Mid LAD. The stent was deployed at 15 SALOME for 0:10 (min:sec). 13:35:26 Inflation number: 2 The stent balloon was then re-inflated across the Mid LAD to 21 SALOME for 0:00 (min:sec). 13:35:50 Inflation number: 3 The stent balloon was then re-inflated across the Mid LAD to 19 SALOME for 0:00 (min:sec). 13:36:14 EXOSEAL 6Fr (EX600) opened to sterile field. 13:36:20 Wire removed. 13:36:21 Guide catheter removed. 13:36:31 Sheath removed intact; hemostasis achieved with Exoseal to the Right Femoral artery. 13:36:33 Procedure ended.(Physican Out) 13:36:43 Fluoroscopy time 02.80 minutes. 13:36:52 Fluoroscopy dose: 499 mGy 13:36:52 Flurop Dose total: 499 13:36:56 Contrast amount:Isovue 300 75ml. 13:36:57 Sharps counted by scrub and verified by R.N. 13:37:00 Insertion/operative site no bleeding no hematoma. 13:37:02 Post Procedure Pulses reassessed and unchanged 13:37:06 Post-procedure physical assessment completed. ASA score P 2 - A patient with mild systemic disease as per Haseeb Contreras MD. 13:37:09 Post procedure rhythm: unchanged. 13:37:13 Estimated blood loss: 10 ml 13:37:14 Post procedure instruction explained to patient.Patient verbalizes understanding. 13:37:46 Procedure type changed to Cath procedure, Diagnostic procedure, LHC, LHC w/Coronaries, PCI procedure, Coronary Stent 13:37:48 Procedure and supply charges have been captured, reviewed, submitted and are correct. 13:38:15 Procedure Complication : No complications 13:38:18 Vital chart was stopped 13:38:18 See physician's report for complete and final results. 13:38:20 Report given to Pre/Post Procedure Room. 13:38:25 Patient transfered to Pre/Post Procedure Room with Stretcher. 13:38:28 Procedure ended. 13:38:28 Full Disclosure recording stopped 13:39:48 End room use (Document Last) Intervention Summary Intervention Notes Time ActionType Lesion and Equipment Used Action# Pressure Duration Attributes 13:35:18 Place stent Mid LAD TRISTA RX 2.5 x 1 15 00:10 15 stent ([id number]) 13:35:26 Reinflate Mid LAD TRISTA RX 2.5 x 2 21 00:00 stent 15 stent balloon ([id number]) 13:35:50 Reinflate Mid LAD TRISTA RX 2.5 x 3 19 00:00 stent 15 stent balloon ([id number]) Device Usage Item Name Manufacture Quantity Catalog Number Hospital Part Current Minimal Lot# / Charge Number Stock Stock Serial# Code ACIST Syringe Acist 1 36345 662087 284856 291854 20 (94545) Balzo Inc Bag Decanter Microtek 1 648787 34243 678030 5 () Moonfruit Inc. Medline Cath Cardinal 1 [id number] 198073 55645 345095 5 Oculus360 ([id number]) DIAGNOSTIC WIRE St Adithya 1 311837 597758 431578 854400 30 .035 260cm J wire (664991) ACIST Hand Acist 1 31108 854425 821161 603757 5 Control (27025) Medical Systems Inc ACIST Manifold Acist 1 59003 916422 035742 086653 5 (67866) Medical Systems Inc DIAGNOSTIC Cardinal 1 XG9755 657189 50655 743563 30 Multipack 5Fr Health catheter set (HC6775) Tegaderm 4 x 4 3M 1 1626W 934318 526414 903225 5 (1626W) PERCUTANEOUS Cook Medical 1 I60404 211797 209631 5 ENTRY 19GA needle SHEATH Prelude Merit 1 ZTJ-0K-41-035 426636 658603 580540 5 5Fr 0.035 Medical (IWK-3S-70-035) MULTIPACK Cardinal 1 744114 5 Pigtail 5 Fr Health catheter MULTIPACK JL Cardinal 1 996041 5 4.0 5Fr HylioSoft catheter MULTIPACK 3DRC Cardinal 1 901218 5 5Fr catheter HylioSoft GUIDE 6FR XBLAD Cardinal 1 [id number] 298637 001142 192452 10 3.5 WordWatch (90933344) INFLATOR Merit Merit 1 VV5338 981865 261004 972773 15 Tabacus Initative (WS3473) CHOICE PT Extra [place] 1 [id number] 084972 330641 730773 5 Support 182cm Scientific wire ([id number]) SHEATH 6Fr Merit 1 [id number] 449419 834010 188042 5 Prelude Medical ([id number]) GUIDE 6FR EBU Medtronic 1 [id number] 733699 26171 391788 0 3.0 catheter (KB3BLH53) TRISTA RX 2.5 x Medtronic 1 [id number] 651086 0668554 425700 5 [id number] 15 stent ([id number]) EXOSEAL 6Fr Cardinal 1 EX600 502069 196974 085727 10 (EX600) Health Signature Audit [place] Stage Time Signature Unsigned Intra-Procedure 11/25/2017 Giovanna Dobbins 1:41:24 PM RT(R) Signatures Monitor : Giovanna Dobbins Signature : RT Date : Time : [address] [place] [address]
--- NOTE | ~2017-11-25 | OP ---
PATIENT NAME: TARYN POLLOCK MEDICAL RECORD: [id number] :55 LOCATION:D.CAT ADMISSION DATE: SURGEON: DAJA WEAVER MD DATE OF OPERATION: 11/25/2017 PROCEDURES: 1. PTCA stent LAD. 2. Left heart catheterization. 3. Selective coronary angiography. 4. Left ventriculogram. INDICATION: Angina and coronary artery disease. PROCEDURE IN DETAIL: After informed consent was obtained and after a detailed description of risks, benefits as well as alternative therapies, the patient elected to proceed with angiogram and angioplasty. The right femoral area was prepped and draped in normal sterile fashion. The right femoral artery was cannulated via modified Seldinger technique with placement of 6-Urdu sheath. All catheters exchanged through this sheath. FINDINGS: The left ventriculogram was performed in standard 30-degree SUAREZ view, reveals good cardiac wall motion throughout all segments. Overall ejection fraction estimated at 50%. SELECTIVE CORONARY ANGIOGRAPHY: 1. Left main is with no significant angiographic disease. 2. Left anterior descending has previously placed stents with 90% in-stent restenosis in the distal aspect of these stents. 3. Left circumflex has moderate irregularities, but no flow-limiting stenosis. 4. The right coronary artery has previously placed stents with 70% to 75% in-stent restenosis in the mid vessel. PTCA STENT OF THE LAD: The stent used was a 2.5 x 15 mm Robert. Result was 0% residual stenosis. OVERALL IMPRESSION: Successful percutaneous transluminal angioplasty stent of the left anterior descending going from 90% initial stenosis to 0% residual. PLAN: PTCA stent of the RCA in the near future. TRANSINT:[id number] Voice Confirmation ID: [id number] DOCUMENT ID: [id number] DAJA WEAVER MD at 1351 CC: [id number] DICTATION DATE: 11/25/17 1340 BALLISTICS TEACHER: 11/25/17 1348 [facility] [address] [id number]
[~2017-11-25 08:34] MED LIST changes: +ALEVE220 MG PO; +CLARITIN 10 MG10 MG PO; +DESERYL100 MG PO; +DIOVAN320 MG PO; +EXCEDRIN CAPLET1 TAB PO; +ISOSORBIDE DINI30 MG PO; +K-TAB10 MEQ PO; +LASIX40 MG PO; +MELATONIN10 M1 PO; +OMNICEF300 MG PO; +PROBIOTIC1 EAC1 PO; +PROTONIX40 MG PO
[2017-11-25] MEDS ORDERED: PLAVIX75 MG PO (09:30)
[2017-11-25] MEDS ORDERED: DIOVAN320 MG PO (09:31)
[2017-11-25] MEDS ORDERED: MELATONIN10 M1 PO (09:33)
[2017-11-25] MEDS ORDERED: PHAZYME 125 MG125 MG PO (09:34)
[2017-11-25 09:41] VITALS: BP 147/80; Ht 157.5 cm; Wt 96.4 kg
[2017-11-25 09:47] LABS: BASOPHILS 0.7 % (0-2); HEMATOCRIT 34.7 % (36.0-48.0); HEMOGLOBIN 11.1 g/dL (12-16); IMMATURE GRANULOCYTES 0.4 % (0-5); LYMPHOCYTES 19.3 % (15-50); MCH 24.3 pg (26.0-34.0); MCV 75.9 fL (80.0-100.0); MEAN PLATELET VOLUME 10.2 fL (7.4-10.4); MONOCYTES 7.8 % (2-11); NEUTROPHILS 64.8 % (40-80); PLATELET COUNT 275 10x3/uL (130-400); RBC 4.57 10x6/uL (4.00-5.40); RDW 16.7 % (11.5-14.5); WBC 8.2 10x3/uL (4.8-10.8)
[2017-11-25 09:57] LABS: ANION GAP 12.2 mmol/L (8-16); CALCIUM 9.4 mg/dL (8.5-10.1); CARBON DIOXIDE 28.1 mmol/L (21.0-32.0); CREATININE - SERUM 1.2 mg/dL (0.6-1.3); POTASSIUM - SERUM 4.3 mmol/L (3.5-5.1)
== END 2017-11-25 17:30 | disposition home or self-care (01) ==
LOC: D.CATH 08:34
PROVIDERS: Internal Medicine Interventional Cardiology
DX: I25.119 Atherosclerotic heart disease of native coronary artery with unspecified angina pectoris (principal); T82.855A Stenosis of coronary artery stent, initial encounter; Z01.812 Encounter for preprocedural laboratory examination

== ENCOUNTER 2017-11-30 07:57 | Outpatient (CLI) | payer BC ==
[~2017-11-30] VITALS: Ht 157.5 cm; Wt 95.5 kg
--- NOTE | ~2017-11-30 | HP ---
PATIENT: TARYN GIRON MEDICAL RECORD: [id number] ACCOUNT: [id number] LOCATION:[place] : 55 ADMISSION DATE: 11/30/17 HISTORY AND PHYSICAL EXAMINATION ADMITTING DIAGNOSES: 1. Angina. 2. Coronary artery disease. 3. Recent percutaneous transluminal coronary angioplasty stent to left anterior descending with concomitant disease to right coronary artery. 4. Hypertension. 5. Hyperlipidemia. HISTORY OF PRESENT ILLNESS: Ms. Giron presents with anginal symptomatology, found to have 2-vessel coronary artery disease of the LAD and RCA, underwent successful DENTAL COORDINATOR stent of the LAD, now brought back for PTCA stent of the RCA. REVIEW OF SYSTEMS: The patient reports easy bruising but reports no swollen glands. The patient reports no fever, no night sweats, no significant weight gain, no significant weight loss. No significant exercise tolerance. The patient reports no dry eyes, no irritation, no vision change. Patient reports no difficulty hearing and no ear pain. Patient reports no frequent nose bleeds or nose and sinus problems. Patient reports on arm pain on exertion. No shortness of breath while lying down. No history of heart murmur. Patient reports no cough, no wheezing or coughing up blood. Patient reports no abdominal pain, no vomiting. Normal appetite. No diarrhea and not vomiting blood. No nausea and no constipation. Patient reports no incontinence. No difficulty urinating. No hematuria. No increased frequency. Patient reports no muscle aches. No weakness, no arthralgias, no back pain. No swelling of the extremities. Patient reports no abnormal mole, no jaundice, no rashes. Reports no loss of consciousness. No weakness and no numbness. No seizures, dizziness, or headaches. The patient reports no depression, no sleep disturbance, feeling safe in a relationship and no alcohol abuse. Patient reports on fatigue. Reports no runny nose or sinus pressure. No itching, no hives, and no frequent sneezing. PHYSICAL EXAMINATION: GENERAL APPEARANCE: Well-nourished, well-developed, appears stated age. Level of distress, comfortable. PSYCHIATRIC: Mental status, alert, normal affect. Orientation, oriented to time, place and person. EYES: Lids and conjunctiva, noninjected. No discharge, no pallor. ENT: Lips, teeth, gums, normal dentition. Oropharynx, no cyanosis, no pallor. NECK: Carotid arteries, bilateral normal upstroke, no bruits, no thrills. JUGULAR VEINS: No jugular venous pressure or distention. CERVICAL LYMPH NODES: Nontender, nonenlarged. THYROID: Not enlarged. Nontender. No nodules. LUNGS: Respiratory effort, unlabored. CHEST: Normal curvature. No thoracic deformity. No chest wall tenderness. Percussion, resonant. Auscultation, clear. No wheezes, no rales, no rhonchi. CARDIOVASCULAR: Precordial exam, nondisplaced. No heaves or pericardial thrills. Rate and rhythm, regular. Heart sounds, normal S1, normal S2. No S3, no gallop, no rub. Systolic murmur, not heard. Diastolic murmur, not heard. EXTREMITIES: No cyanosis, no edema. Peripheral pulses, full and equal in all extremities, except as noted. No bruits appreciated. HISTORY AND PHYSICAL [id number] TARYN GIRON ABDOMEN: Soft, nondistended. Normal aorta. No bruit. Nontender. No masses. Liver, nontender, no hepatomegaly. Spleen, nontender, no splenomegaly. MUSCULOSKELETAL: No joint tenderness. No joint swelling. No erythema. NEUROLOGICAL: Normal gait, normal strength, normal tone. SKIN: Warm and dry. OVERALL IMPRESSION: Anginal symptomatology with significant disease of the right coronary artery. We will proceed with percutaneous transluminal coronary angioplasty stent of the right coronary artery. TRANSINT:[id number] Voice Confirmation ID: [id number] DOCUMENT ID: [id number] DAJA WEAVER MD at 1006 CC: [id number] DICTATION DATE: 11/30/17 0952 ELEVATOR TROUBLESHOOTER: 11/30/17 1038 [facility] CLI 11/30/17 [address] [place] [address]
--- NOTE | ~2017-11-30 | OP ---
PATIENT NAME: TARYN POLLOCK MEDICAL RECORD: [id number] :55 LOCATION:D.CAT ADMISSION DATE: SURGEON: DAJA WEAVER MD DATE OF OPERATION: 11/30/2017 PROCEDURES: 1. PTCA stent RCA. 2. Selective coronary angiography. INDICATION: Angina and coronary artery disease. PROCEDURE IN DETAIL: After informed consent was obtained and after a detailed explanation of the risks, benefits as well as alternative therapies, the patient elected to proceed with angiogram and angioplasty. The right femoral area was prepped and draped in normal sterile fashion. Right femoral artery was cannulated via modified Seldinger technique with placement of 6-Syriac sheath. All catheters exchanged through this sheath. FINDINGS: The right coronary artery has a 70% to 80% stenosis in the mid vessel. This was addressed with a 3.0 x 12 mm Madeline. Result was 0% residual stenosis. OVERALL IMPRESSION: Successful percutaneous transluminal angioplasty stent of the right coronary artery going from 80% initial stenosis to 0% residual. TRANSINT:[id number] Voice Confirmation ID: [id number] DOCUMENT ID: [id number] DAJA WEAVER MD at 1006 CC: [id number] DICTATION DATE: 11/30/17 0953 VAT HOUSE SUPERVISOR: 11/30/17 1313 [facility] CLI 11/30/[address] [address]
--- NOTE | ~2017-11-30 | HEMODYNAMI ---
PATIENT:TARYN POLLOCK MEDICAL RECORD: [id number] : 55 LOCATION:[facility] ADMISSION DATE: 11/30/17 Generatedon:11/30/20179:56 Patient name: TARYN POLLOCK Patient #: [id number] SSN: : 1955 Date of study: 11/30/2017 Page: Of Hemodynamic Procedure Report Patient Data Patient Demographics Procedure consent was obtained First Name: TARYN Gender: Female Last Name: PHILL : 1955 [facility] Initial: J Age: 62 year(s) Patient #: [id number] Race: Additional ID: [id number] Contact details Address: [address] [place] [address] State: [place] City: [facility] Zip code: [address] Past Medical History Allergies Allergen Reaction Date Comments Reported Penicillins 10/09/2014 Sulfa drugs 10/09/2014 Other allergy 10/09/2014 Microbid Other allergy 10/09/2014 Other allergy 10/09/2014 biaxin Other allergy 10/09/2014 clindamycin Other allergy 11/30/2017 CLINDAMYCIN, MACROBID, SULFA, HTCZ, BIAKIN, PCN Admission Admission Data Admission Date: 11/30/2017 Admission Time: 7:57 Lab Results Lab Result Date: 11/30/2017 Lab Result Time: 0:00 Biochemistry Name Units Result Min Max BUN mg/dl 15 --(--*-)-- 7 18 Creatinine mg/dl 1.3 --(---*)-- 0.6 1.3 CBC Name Units Result Min Max Hemoglobin g/dl 10.6 *-(----)-- 13.5 17.5 Procedure Procedure Types Cath Procedure PCI Procedure Coronary Stent Coronary Stent Initial Procedure Description Procedure Date Procedure Date: 11/30/2017 Procedure Start Time: 9:43 Procedure End Time: 9:54 Procedure Staff Name Function Haseeb Contreras MD Performing Physician Elsa Amaya RT Monitor Phil Nguyen RT Scrub Kimberly Goodman RN Nurse Procedure Data Cath Procedure Fluoroscopy Diagnostic fluoroscopy Total fluoroscopy Time: 1.1 time: 1.1 min min Diagnostic fluoroscopy Total fluoroscopy dose: 121 dose: 121 mGy mGy Contrast Material Contrast Material Type Amount (ml) Isovue 300 31 Entry Location Entry Primary Successful Side Size Upsize Upsize Entry Closure Succes sful Closure Location (Fr) 1 (Fr) 2 (Fr) Remarks Device Remarks Femoral Right 6 Fr Exoseal artery Short Estimated blood loss: 10 ml Procedure Complications No complications Procedure Medications Medication Administration Route Dosage Heparin Bolus I.V. 4000 units Oxygen NC 2 l/min Lidocaine 2% added to field 20 0.9% NaCl I.V. 100 ml/hr Heparin Flush Bag added to field 2 bags (1000units/500ml NS) Versed I.V. 1 mg Fentanyl I.V. 50 mcg Versed I.V. 1 mg Fentanyl I.V. 50 mcg Hemodynamics Rest HGB: 10.6 (g/dl) Heart Rate: 69 (bpm) Snapshots Pre Cath Intra NCS Post Cath Vital Signs Time Heart Resp SPO2 etCO2 NIBP (mmHg) Rhythm Pain Sedation Rate (ipm) (%) (mmHg) Status Level (bpm) 9:28:13 68 13 97 0 148/86(127) NSR 0 (11) 10(A) , No pain 9:32:34 67 21 95 0 134/80(122) NSR 0 (11) 10(A) , No pain 9:36:50 65 13 96 0 147/80(114) NSR 0 (11) 10(A) , No pain 9:42:07 69 23 93 0 148/90(133) NSR 0 (11) 10(A) , No pain 9:46:23 66 15 94 10.5 136/82(114) NSR 0 (11) 9(A) , No pain 9:50:37 63 16 94 15.7 130/80(117) NSR 0 (11) 9(A) , No pain 9:54:49 66 14 93 10.5 142/85(114) NSR 0 (11) 10(A) , No pain Medications Time Medication Route Dose Verified Delivered Reason Notes Effectiveness by by 9:30:23 Oxygen NC 2 Haseeb Harris used 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 100 Haseeb Buffie Per physician ml/hr Ben Goodman RN 9:41:19 Versed I.V. 1 mg Haseeb Buffie for sedation Ben Goodman RN 9:41:25 Fentanyl I.V. 50 Haseeb Buffie for sedation mcg Ben Goodman RN 9:43:53 Heparin Bolus I.V. 4000 Haseeb Buffie for verifie d units Ben Goodman RN anticoagulation with dr contreras 9:45:36 Versed I.V. 1 mg Haseeb Buffie for sedation Ben Goodman RN 9:45:39 Fentanyl I.V. 50 Haseeb Buffie for sedation mcg Ben Goodman RN Procedure Log Time Note 9:13:37 Signed procedure consent form obtained from patient. 9:13:40 Time tracking: Regular hours (M-F 7:00 - 5:00) 9:13:44 Plan of Care:Hemodynamics will remain stable., Cardiac rhythm will remain stable., Comfort level will be maintained., Respiratory function will remain adequate., Patient/ family verbilizes understanding of procedure., Procedure tolerated without complication., Recovers from procedure without complications.. 9:13:48 Phil Nguyen RT(R) sent for patient. Start room use. 9:16:16 Patient received from Pre/Post Procedure Room to CCL 2 Alert and oriented. Tansferred to table in Supine position. 9:16:17 Warm blankets applied, and oliver hugger turned on for patient comfort. 9:16:17 Correct patient and procedure confirmed by team. 9:16:18 ECG and BP/O2 sat monitors applied to patient. 9:27:00 Vital chart was started 9:27:54 Baseline sample Acquired. 9:28:02 Rhythm: sinus rhythm 9:28:03 Full Disclosure recording started 9:28:27 Pre-procedure instructions explained to patient. 9:28:27 Pre-op teaching completed and patient verbalized understanding. 9:28:29 Family in patients room. 9:28:31 Patient NPO since Midnight. 9:29:35 Patient allergic to Other allergyCLINDAMYCIN, MACROBID, SULFA, HTCZ, BIAKIN, PCN 9:29:40 Is the patient allergic to Iodine/contrast media? No. 9:29:42 Is patient on blood thinner?Yes 9::44 ACC The patient was administered the following blood thiners within the last 24 hours: ACCPlavix 9:29:46 Patient diabetic? No. 9:29:48 Patient not . Patient is over age 55. 9:29:51 Previous problem with sedation/anesthesia? No ? 9::51 Snore? Yes 9::52 Sleep apnea? No 9::53 Deviated septum? No 9::54 Opens mouth fully? Yes 9::55 Sticks out tongue? Yes 9::57 Airway obstruction? No ? 9:29:59 Dentures? Yes IN 9:30:03 Pre procedure: right dorsailis pedis pulse 1+ Palpable, but thready & weak; easily obliterated 9:30:06 Patient pain scale 0/10 ?. 9:30:12 IV patent on arrival in right antecubital with 0.9% NaCl at O. 9:30:23 Oxygen 2 l/min NC was administered by Kimberly Goodman RN; used for procedure; 9:30:24 Right groin area was prepped with chlora-prep and draped in sterile fashion 9:31:09 Heparin Flush Bag (1000units/500ml NS) 2 bags added to field was administered by Kimberly Goodman RN; used for procedure; :: Lab Result : BUN 15 mg/dl :: Lab Result : Creatinine 1.3 mg/dl 9:: Lab Result : Hemoglobin 10.6 g/dl 9::29 Lidocaine 2% 20ml vial added to field was administered by Haseeb Contreras MD; for local anesthetic; :: Lab results completed and on chart. 9:31:32 Alarms reviewed by R. N. 9:31:32 Sharps counted by scrub and verified by R.N. 9:31:53 0.9% NaCl 100 ml/hr I.V. was administered by Kimberly Goodman RN; Per physician; 9:32:14 Use device set CATH PACK 9:32:15 ACIST Syringe (60214) opened to sterile field. 9:32:16 ACIST Hand Control (83263) opened to sterile field. 9:32:16 ACIST Manifold (90670) opened to sterile field. 9:32:18 Medline Cath Pack ([id number]) opened to sterile field. 9:32:18 Bag Decanter (2002S) opened to sterile field. 9:32:19 DIAGNOSTIC WIRE .035 260cm J wire (705989) opened to sterile field. 9:32:39 INFLATOR Merit BasixCompak (NK5033) opened to sterile field. 9:32:40 CHOICE PT Extra Support 182cm wire ([id number]) opened to sterile field. 9:32:40 SHEATH 6FR [place] (SNV151) opened to sterile field. 9:40:16 --------ALL STOP TIME OUT------ 9:40:17 Final Timeout: patient, procedure, and site verified with staff and physician. All members of the team are in agreement. 9:40:19 Right groin site verified by team. 9:40:22 Physical assessment completed. ASA score P 2 - A patient with mild systemic disease as per Haseeb Contreras MD. 9:40:25 Sedation plan: IV Moderate Sedation Medication:Versed, Fentanyl 9:41:19 Versed 1 mg I.V. was administered by Kimberly Goodman RN; for sedation; 9:41:25 Fentanyl 50 mcg I.V. was administered by Kimberly Goodman RN; for sedation; 9:43:20 Procedure started. 9:43:24 Local anesthetic to right femoral artery with Lidocaine 2% by Haseeb Contreras MD.INITIAL ACCESS ONLY 9:43:30 GUIDE 6FR HS I catheter (LA6HSI) opened to sterile field. 9:43:35 Zero performed for pressure channel P1 9:43:53 Heparin Bolus 4000 units I.V. was administered by Kimberly Goodman RN; for anticoagulation; verified with dr contreras 9:44:25 A 6 Fr Short sheath was inserted into the Right Femoral artery 9:44:34 6 Fr HS1 guide catheter was inserted over the wire 9:45:19 CHOICE ES 182 wire advanced. 9:45:34 Wire advanced across lesion. 9:45:36 Versed 1 mg I.V. was administered by Kimberly Goodman RN; for sedation; 9:45:39 Fentanyl 50 mcg I.V. was administered by Kimberly Goodman RN; for sedation; 9:47:14 Place stent Inflation Number: 1 A TRISTA RX 3.0 x 12 stent ([id number]) was prepped and advanced across the Prox RCA. The stent was deployed at 17 SALOME for 0:10 (min:sec). 9:47:31 Inflation number: 2 The stent balloon was then re-inflated across the Prox RCA to 13 SALOME for 0:10 (min:sec). 9:47:49 Stent catheter was removed intact over wire. 9:47:50 Wire removed. 9:47:50 Guide catheter removed. 9:48:31 EXOSEAL 6Fr (EX600) opened to sterile field. 9:48:40 Sheath removed intact; hemostasis achieved with Exoseal to the Right Femoral artery. 9:48:42 Procedure ended.(Physican Out) 9:49:50 H&P Date Dictated: 11/30/2017 Within 30 days and on chart.. 9:50:05 Fluoroscopy time 01.10 minutes. 9:50:16 Flurop Dose total: 121 9:50:16 Fluoroscopy dose: 121 mGy 9:50:23 Contrast amount:Isovue 300 31ml. 9:50:24 Sharps counted by scrub and verified by R.N. 9:50:27 Post-op/insertion site Right Femoral artery dressed using a 4 x 4 and Tegaderm. 9:50:32 Post right femoral artery:stable, soft, clean and dry 9:50:35 Post Procedure Pulses reassessed and unchanged 9:50:40 Post procedure: right dorsailis pedis pulse 1+ Palpable, but thready & weak; easily obliterated. 9:50:43 Post-procedure physical assessment completed. ASA score P 2 - A patient with mild systemic disease as per Haseeb Contreras MD. 9:50:46 Post procedure rhythm: unchanged. 9:50:48 Estimated blood loss: 10 ml 9:50:50 Post procedure instruction explained to patient.Patient verbalizes understanding. 9:50:50 Patient needs reinforcement of post procedure teaching. 9:54:02 Procedure and supply charges have been captured, reviewed, submitted and are correct. 9:54:05 Procedure Complication : No complications 9:54:07 Vital chart was stopped 9:54:08 See physician's report for complete and final results. 9:54:09 Report given to Pre/Post Procedure Room. 9:54:12 Patient transfered to Pre/Post Procedure Room with Bed. 9:54:14 Procedure ended. 9:54:14 Full Disclosure recording stopped 9:54:17 End room use (Document Last) Intervention Summary Intervention Notes Time ActionType Lesion and Equipment Used Action# Pressure Duration Attributes 9:47:14 Place stent Prox RCA TRISTA RX 3.0 x 1 17 00:10 12 stent ([id number]) 9:47:31 Reinflate Prox RCA TRISTA RX 3.0 x 2 13 00:10 stent 12 stent balloon ([id number]) Device Usage Item Name Manufacture Quantity Catalog Number Hospital Part Current M inimal Lot# / Charge Number Stock Stock Serial# Code ACIST Syringe Acist 1 34692 503790 225325 807900 2 0 (84184) Medical Systems Inc ACIST Hand Acist 1 04300 332053 893010 978126 5 Control Medical (35696) Systems Inc ACIST Manifold Acist 1 24167 153423 121622 670103 5 (58543) Medical Systems Inc Medline Cath Cardinal 1 [id number] 830242 23016 702904 5 Absio ([id number]) Bag Decanter Microtek 1 2001S 367796 58809 518086 5 (2001S) Medical Inc. DIAGNOSTIC St Adithya 1 834449 750330 726421 294976 3 0 WIRE .035 260cm J wire (252792) INFLATOR Merit Merit 1 GB0804 302364 145710 686839 1 5 [employer] (NH3231) CHOICE PT [place] 1 [id number] 259763 097905 976830 5 Extra Support Scientific 182cm wire ([id number]) SHEATH 6FR Terumo 1 PTF815 382969 049625 419922 4 0 [place] (WVI601) GUIDE 6FR HS I Medtronic 1 LA6HSI 720265 39613 676207 1 catheter (LA6HSI) TRISTA RX 3.0 x Medtronic 1 [id number] 264751 6950850 637832 5 [id number] 12 stent ([id number]) EXOSEAL 6Fr Cardinal 1 EX600 466609 034256 948481 1 0 (EX600) Health Signature Audit Beatty Stage Time Signature Unsigned Intra-Procedure 11/30/2017 Elsa Amaya 9:56:34 AM RT(R) Signatures Monitor : Elsa Amaya Signature : RT Date : Time : [address] [address]
[~2017-11-30 07:57] MED LIST changes: +PHAZYME 125 MG125 MG PO
[2017-11-30 08:17] VITALS: BP 159/88; Ht 157.5 cm; Wt 95.5 kg
[2017-11-30 08:28] LABS: BASOPHILS 0.9 % (0-2); EOSINOPHILS 6.8 % (0-7); HEMATOCRIT 33.1 % (36.0-48.0); HEMOGLOBIN 10.6 g/dL (12-16); IMMATURE GRANULOCYTES 0.5 % (0-5); LYMPHOCYTES 24.7 % (15-50); MCH 24.4 pg (26.0-34.0); MCV 76.3 fL (80.0-100.0); MEAN PLATELET VOLUME 10.4 fL (7.4-10.4); MONOCYTES 5.9 % (2-11); NEUTROPHILS 61.2 % (40-80); PLATELET COUNT 280 10x3/uL (130-400); RBC 4.34 10x6/uL (4.00-5.40); RDW 16.2 % (11.5-14.5); WBC 8.1 10x3/uL (4.8-10.8)
[2017-11-30 08:44] LABS: CREATININE - SERUM 1.3 mg/dL (0.6-1.3)
== END 2017-11-30 18:45 | disposition home or self-care (01) ==
LOC: D.CATH 07:57
PROVIDERS: Internal Medicine Interventional Cardiology
DX: I25.119 Atherosclerotic heart disease of native coronary artery with unspecified angina pectoris (principal); Z95.5 Presence of coronary angioplasty implant and graft; I10 Essential (primary) hypertension; E78.5 Hyperlipidemia, unspecified; Z01.812 Encounter for preprocedural laboratory examination

== ENCOUNTER 2018-02-08 08:00 | Outpatient (CLI) | payer BC ==
[2017-11-30 08:17] VITALS: BMI 38.5
== END 2018-02-08 09:00 | disposition home or self-care (01) ==
LOC: D.MAMMO 08:00
DX: Z12.31 Encounter for screening mammogram for malignant neoplasm of breast (principal)

== ENCOUNTER 2018-03-15 08:00 | Outpatient (CLI) | payer BC ==
[2017-11-30 08:17] VITALS: BMI 38.5
== END 2018-03-15 09:10 | disposition home or self-care (01) ==
LOC: D.MAMMO 08:00
DX: R92.8 Other abnormal and inconclusive findings on diagnostic imaging of breast (principal)

== ENCOUNTER → 2019-01-17 10:57 | Outpatient (CLI) | payer BC ==
[2017-11-30 08:17] VITALS: BMI 38.5
--- NOTE | 2019-01-19 13:25 | ST ---
PATIENT:TARYN POLLOCK MEDICAL RECORD: [id number] SEX: F LOCATION:[facility] ORDER #: ADMISSION DATE: 01/17/19 AGE OF PATIENT: 63 REFERRING PHYSICIAN: INTERPRETING PHYSICIAN: DAJA WEAVER MD DATE OF SERVICE: 01/17/2019 PROCEDURE: Nuclear stress test. INDICATION: Angina and coronary artery disease, shortness of breath, hypertension. She was exercised on standard Lexiscan protocol with 32 mCi of sestamibi injected at peak stress, 10 mCi used previously for rest images. FINDINGS: Gated SPECT reveals preserved ejection fraction at 60% with good wall motioning and thickening and brightening throughout all segments. SPECT imaging: Cardiolite was used as myocardial perfusion agent. There are definite reversible changes anteriorly and apically. This includes the basal, mid, apical anterior segments as well as the apex itself. The degree of reversibility is moderate. The amount of myocardium involved is moderate. OVERALL IMPRESSION: 1. This is an intermediate to high risk nuclear stress test that is abnormal with reversibility anteriorly and apically. 2. Gated SPECT reveals preserved ejection fraction at 60%. In this patient with ongoing symptomatology, the current scan does suggest presence of hemodynamically significant coronary artery disease. We will proceed with coronary angiography as followup study. TRANSINT:[id number] Voice Confirmation ID: [id number] DOCUMENT ID: [id number] DAJA WEAVER MD at 1325 CC: KEN COSTA [id number] DICTATION DATE: 01/17/19 175 CASE RESOLUTION SPECIALIST: 01/18/19 0301 DEP CLI 01/17/19 [place] [id number] [place] [id number]
== END | disposition home or self-care (01) ==
LOC: D.HCCARDIO 01-11 11:00
PROVIDERS: ATTEND Internal Medicine Interventional Cardiology
DX: I25.119 Atherosclerotic heart disease of native coronary artery with unspecified angina pectoris (principal)

== ENCOUNTER 2019-01-24 08:13 | Outpatient (CLI) | payer BC ==
--- NOTE | ~2019-01-24 | HEMODYNAMI ---
PATIENT:TARYN POLLOCK MEDICAL RECORD: [id number] : 55 LOCATION:D.CAT ADMISSION DATE: 01/24/19 Generatedon:01/24/201910:27 Patient name: TARYN POLLOCK Patient #: [id number] SSN: : 1955 Date of study: 01/24/2019 Page: Of Hemodynamic Procedure Report Patient Data Patient Demographics Procedure consent was obtained First Name: TARYN Gender: Female Last Name: PHILL : 1955 [facility] Initial: J Age: 63 year(s) Patient #: [id number] Race: Additional ID: [id number] Contact details Address: [address] [place] [address] State: [place] City: [facility] Zip code: [address] Past Medical History Allergies Allergen Reaction Date Comments Reported Penicillins 10/09/2014 Sulfa drugs 10/09/2014 Other allergy 10/09/2014 Microbid Other allergy 10/09/2014 Other allergy 10/09/2014 biaxin Other allergy 10/09/2014 clindamycin Other allergy 11/30/2017 CLINDAMYCIN, MACROBID, SULFA, HTCZ, BIAKIN, PCN Other allergy 01/24/2019 BIAXIN, CLINDAMYCIN, DIOVAN, HYDTOCHLOROTHIAZIDE, LASIX, MACROBID, PCN, SULFA Admission Admission Data Admission Date: 01/24/2019 Admission Time: 8:13 Height (in.): 63 BSA: 2.03 (m2) Height (cm.): 160.02 BMI: 39.5 (kg/m2) Weight (lbs.): 223 Weight (kg.): 101.15 Procedure Procedure Types Cath Procedure Diagnostic Procedure C [facility] w/Coronaries FFR/IVUS FFR Initial Intra-Coronary IVUS Initial Sedation Charges Moderate Sedation up to 15 minutes PCI Procedure Coronary Stent Coronary Stent Initial x2 Procedure Description Procedure Date Procedure Date: 01/24/2019 Procedure Start Time: 9:56 Procedure End Time: 10:20 Procedure Staff Name Function Simran Basurto RT Monitor Haseeb Contreras MD Performing Physician Elsa Amaya RT Scrub Nidia Rose RN Nurse Procedure Data Cath Procedure Fluoroscopy Diagnostic fluoroscopy Total fluoroscopy Time: 7.6 time: 7.6 min min Diagnostic fluoroscopy Total fluoroscopy dose: dose: 1573 mGy 1573 mGy Contrast Material Contrast Material Type Amount (ml) Isovue 370 128 Entry Location Entry Primary Successful Side Size Upsize Upsize Entry Closure Succes sful Closure Location (Fr) 1 (Fr) 2 (Fr) Remarks Device Remarks Femoral Right 5 Fr 6 Fr Exoseal artery Short Estimated blood loss: 5 ml Diagnostic catheters Device Type Used For End Catheter Placement MULTIPACK Pigtail 5 Fr LV Angiography catheter MULTIPACK JL 4.0 5Fr Left Coronary catheter Angiography MULTIPACK 3DRC 5Fr Right Coronary catheter Angiography Procedure Complications No complications Procedure Medications Medication Administration Route Dosage 0.9% NaCl I.V. 100 ml/hr Oxygen etCO2 Nasal cannula 2 l/min Lidocaine 2% added to field 20 Heparin Flush Bag added to field 2 bags (1000units/500ml NS) Versed I.V. 2 mg Fentanyl I.V. 50 mcg Heparin Bolus I.V. 4000 units Integrilin (Bolus I.V. 9 ml 2mg/ml) Plavix P.O. 600 mg Fentanyl I.V. 50 mcg Hemodynamics Rest BSA: 2.03 (m2) O2 Consumption: Estimated: 185.57 (ml/min) O2 Consumption indexed : Estimated:91.41 (ml/min/m) Heart Rate: 64 (bpm) Pressure Samples Time Site Value (mmHg) Purpose Heart Use Rate(bpm) 9:57 LV 137/10,18 Snapshot 61 Snapshots Pre Cath Intra NCS Post Cath Vital Signs Time Heart Resp SPO2 etCO2 NIBP (mmHg) Rhythm Pain Sedation Rate (ipm) (%) (mmHg) Status Level (bpm) 9:28:34 64 13 99 32 113/91(109) NSR 0 (11) 10(A) , No pain 9:33:34 65 15 98 36.9 Measuring NSR 0 (11) 10(A) , No pain 9:34:52 65 14 99 32.4 164/89(107) NSR 0 (11) 10(A) , No pain 9:39:14 66 16 98 39 137/78(110) NSR 0 (11) 10(A) , No pain 9:43:40 67 17 98 12 135/78(93) NSR 0 (11) 10(A) , No pain 9:48:04 68 17 96 27.9 129/77(112) NSR 0 (11) 10(A) , No pain 9:52:24 66 16 98 26.3 132/81(117) NSR 0 (11) 10(A) , No pain 9:56:51 68 17 99 40.6 139/72(114) NSR 0 (11) 10(A) , No pain 10:01:17 71 17 98 21 142/76(120) NSR 0 (11) 9(A) , No pain 10:05:41 69 16 98 37.7 145/83(104) NSR 0 (11) 9(A) , No pain 10:10:09 70 16 98 39.9 146/78(128) NSR 0 (11) 9(A) , No pain 10:14:36 68 14 98 39.2 161/85(127) NSR 0 (11) 9(A) , No pain 10:19:06 74 17 99 33.9 159/89(127) NSR 0 (11) 10(A) , No pain Medications Time Medication Route Dose Verified Delivered Reason Notes Effectiveness by by 9:35:09 0.9% NaCl I.V. 100 Haseeb Nidia used for ml/hr Ben Rose metals analyst 9:35:16 Oxygen etCO2 2 Haseeb Nidia used for Nasal l/min Ben Rose procedure cannula RN 9:35:22 Lidocaine 2% added 20ml Haseeb Haseeb for local to vial Ben Contreras MD anesthetic field 9:35:27 Heparin Flush added 2 Haseeb Haseeb used for Bag to bags Ben Contreras MD procedure (1000units/500ml field NS) 9:54:50 Versed I.V. 2 mg Haseeb Nidia for sedation Ben Rose RN 9:54:56 Fentanyl I.V. 50 Haseeb Nidia for sedation mcg Ben Rose RN 9:59:27 Fentanyl I.V. 50 Haseeb Nidia for sedation mcg Ben Rose RN 10:02:47 Heparin Bolus I.V. 4000 Haseeb Nidia for verif ied units Ben Rose anticoagulation with Dr. FLORESITA Contreras 10:02:59 Integrilin I.V. 9 ml Haseeb Jacob for waste d (Bolus 2mg/ml) Ben Rose antiplatelet 1mL RN therapy 10:03:20 Plavix P.O. 600 Haseeb Jacob for mg Ben Rose antiplatelet RN therapy Procedure Log Time Note 9::02 Signed procedure consent form obtained from patient. 9:09:03 Diagnostic Cath status Elective 9::04 Time tracking: Regular hours (M-F 7:00 - 5:00) 9:09:08 Plan of Care:Hemodynamics will remain stable., Cardiac rhythm will remain stable., Comfort level will be maintained., Respiratory function will remain adequate., Patient/ family verbilizes understanding of procedure., Procedure tolerated without complication., Recovers from procedure without complications.. 9:10:18 Patient allergic to Other allergyBIAXIN, CLINDAMYCIN, DIOVAN, HYDTOCHLOROTHIAZIDE, LASIX, MACROBID, PCN, SULFA 9:10:36 Patient Weight : 223 lbs 9:10:44 Patient Height : 63 inches 9:16:36 Anita Margarita RT(R) sent for patient. Start room use. 9:27:12 Vital chart was started 9:31:58 Patient received from Pre/Post Procedure Room to CCL 1 Alert and oriented. Tansferred to table in Supine position. 9:32:02 Warm blankets applied, and oliver hugger turned on for patient comfort. 9:32:03 Correct patient and procedure confirmed by team. 9:32:04 ECG and BP/O2 sat monitors applied to patient. 9:32:09 Baseline sample Acquired. 9:32:13 Rhythm: sinus rhythm 9:32:15 Full Disclosure recording started 9:32:20 H&P Date Dictated: 01/24/2019 Within 30 days and on chart., H&P Addendum completed by physician on day of procedure. (MUST COMPLETE FOR ALL OUTPATIENTS). 9:32:23 Pre-op teaching completed and patient verbalized understanding. 9:32:23 Pre-procedure instructions explained to patient. 9:32:24 Family in patients room. 9:32:26 Patient NPO since Midnight. 9:32:27 Is the patient allergic to Iodine/contrast media? No. 9:32:28 Was the patient premedicated? No 9:32:30 Is patient on blood thinner?No 9:32:43 Patient diabetic? No. 9:32:45 Previous problem with sedation/anesthesia? No ? 9:32:47 Snore? Yes 9:32:48 Sleep apnea? Yes 9:32:49 Deviated septum? No 9:32:50 Opens mouth fully? Yes 9:32:51 Sticks out tongue? Yes 9:32:57 Airway obstruction? No ? 9:33:01 Dentures? Yes IN TIGHT 9:33:05 Pre procedure: right dorsailis pedis pulse 2+ Normal; easily identifiable; not easily obliterated 9:33:07 Pre procedure: left dorsailis pedis pulse 2+ Normal; easily identifiable; not easily obliterated 9:33:09 Patient pain scale 0/10 ?. 9:33:14 IV patent on arrival in left forearm with 0.9% NaCl at O. 9:33:17 Lab results completed and on chart. 9:33:23 Right groin area was prepped with chlora-prep and draped in sterile fashion 9:33:24 Sharps counted by scrub and verified by R.N. 9:33:24 Alarms reviewed by R. N. 9:35:09 0.9% NaCl 100 ml/hr I.V. was administered by Nidia Rose RN; used for procedure; 9:35:16 Oxygen 2 l/min etCO2 Nasal cannula was administered by Nidia Rose RN; used for procedure; 9:35:22 Lidocaine 2% 20ml vial added to field was administered by Haseeb Contreras MD; for local anesthetic; 9:35:27 Heparin Flush Bag (1000units/500ml NS) 2 bags added to field was administered by Haseeb Contreras MD; used for procedure; 9:38:46 Physician paged 9:53:52 --------ALL STOP TIME OUT------ 9:53:52 Physician arrived 9:53:53 Final Timeout: patient, procedure, and site verified with staff and physician. All members of the team are in agreement. 9:53:55 Right groin site verified by team. 9:53:59 Maximum allowable Isovue 370 dose 300ml. Physician notified. (300ml for normal creatinines. For patients with creatinine of 1.7 or higher multiply weight(kg) x 5 divided by creatinine.) 9:54:03 Fire Safety Assessment: A--An alcohol-based skin anteseptic being used preoperatively., C--Open oxygen or nitrous oxide is being used., D--An ESU, laser, or fiber-optic light is being used. 9:54:07 Physical assessment completed. ASA score P 2 - A patient with mild systemic disease as per Haseeb Contreras MD. 9:54:23 Sedation plan: IV Moderate Sedation Medication:Versed, Fentanyl 9:54:27 Use device set Femoral Dx 9:54:28 Bag Decanter (2002S) opened to sterile field. 9:54:28 ACIST Syringe (26740) opened to sterile field. 9:54:29 DIAGNOSTIC WIRE .035 260cm J wire (620883) opened to sterile field. 9:54:29 Medline Cath Pack ([id number]) opened to sterile field. 9:54:31 DIAGNOSTIC Multipack 5Fr catheter set (PI7847) opened to sterile field. 9:54:31 ACIST Manifold (45531) opened to sterile field. 9:54:31 ACIST Hand Control (23201) opened to sterile field. 9:54:32 Tegaderm 4 x 4 (1626W) opened to sterile field. 9:54:33 EMERALD Guide Wire (540-760) opened to sterile field. 9:54:47 Procedure started. 9:54:50 Versed 2 mg I.V. was administered by Nidia Rose RN; for sedation; 9:54:56 Fentanyl 50 mcg I.V. was administered by Nidia Rose RN; for sedation; 9:54:58 Zero performed for pressure channel P1 9:56:14 Local anesthetic to right femoral artery with Lidocaine 2% by Haseeb Contreras MD.INITIAL ACCESS ONLY 9:56:35 A 5 Fr sheath was inserted into the Right Femoral artery 9:57:12 A MULTIPACK Pigtail 5 Fr catheter was advanced over the wire and used for LV Angiography. 9:57:28 LV hemodynamics recorded. 9:57:33 LV gram done using SUAREZ 9:57:39 EF : 45 % 9:57:47 Injector settings: Ml/sec: 5, Volume: 15, 9:57:49 Catheter removed. 9:58:16 A MULTIPACK JL 4.0 5Fr catheter was advanced over the wire and used for Left Coronary Angiography. 9:58:34 LCA angiography performed. 9:58:37 Injector settings: Ml/sec: 3, Volume: 6, 9:59:27 Fentanyl 50 mcg I.V. was administered by Nidia Rose RN; for sedation; 9:59:33 Catheter removed. 9:59:38 A MULTIPACK 3DRC 5Fr catheter was advanced over the wire and used for Right Coronary Angiography. 9:59:49 RCA angiography performed. 9:59:56 Injector settings: Ml/sec: 3, Volume: 6, 10:00:00 Catheter removed. 10:00:01 Proceeding to intervention. 10:00:34 GUIDE 6FR EBU 3.0 catheter ([id number]) opened to sterile field. 10:00:35 [place] Verrata Plus pressure wire (78906R) opened to sterile field. 10:00:35 CHOICE PT Extra Support 182cm wire ([id number]) opened to sterile field. 10:00:36 INFLATOR Merit BasixCompak (VV2731) opened to sterile field. 10:00:37 SHEATH 6FR [place] (LDX407) opened to sterile field. 10:00:46 Sheath upsized to a 6 Fr Short. 10:00:59 6 Fr EBU 3 guide catheter was inserted over the wire 10:02:17 FFR/IFR wire advanced. 10:02:47 Heparin Bolus 4000 units I.V. was administered by Nidia Rose RN; for anticoagulation; verified with Dr. Contreras 10:02:59 Integrilin (Bolus 2mg/ml) 9 ml I.V. was administered by Nidia Rose RN; for antiplatelet therapy; wasted 1mL 10:03:20 Plavix 600 mg P.O. was administered by Nidia Rose RN; for antiplatelet therapy; 10:03:29 Baseline FFR 1.01. 10:04:49 LAD lesion measured at 0.94 with IFR 10:05:34 Wire removed. 10:05:42 [place] IVUS Catheter (87258O) opened to sterile field. 10:05:55 CHOICE PT wire advanced. 10:06:35 Wire advanced across lesion. 10:06:39 IVUS catheter advanced over wire. 10:09:15 IVUS pass to LAD lesion performed. 10:09:21 IVUS catheter removed over wire. 10:10:08 IVUS measeured LAD lesion at 78.9% 10:10:31 CHOICE PT Extra Support 182cm wire ([id number]) opened to sterile field. 10:10:58 Place stent Inflation Number: 1 A TRISTA RX 3.0 x 22 stent ([id number]) was prepped and advanced across the Mid LAD 78. The stent was deployed at 17 SALOME for 0:10 (min:sec) . 10:11:04 Inflation number: 2 The stent balloon was then re-inflated across the Mid LAD to 21 SALOME for 0:10 (min:sec) . 10:11:29 Inflation number: 3 The stent balloon was then re-inflated across the Mid LAD to 13 SALOME for 0:30 (min:sec) . 10:12:00 Stent catheter was removed intact over wire. 10:12:02 Wire removed. 10:12:18 choice pt wire advanced. 10:12:22 Wire advanced across lesion. 10:15:44 Inflate balloon Inflation number: 1 A EUPHORA 2.0 x 15 Balloon ([id number]) was prepped and advanced across the Mid CX 90, then inflated to 13 SALOME for 0:10 (min:sec) . 10:15:51 Inflation number: 2 The EUPHORA 2.0 x 15 Balloon ([id number]) was reinflated across the Mid CX , to 13 SALOME for 0:10 (min:sec) . 10:16:10 Inflation number: 3 The EUPHORA 2.0 x 15 Balloon ([id number]) was reinflated across the Mid CX , to 13 SALOME for 0:10 (min:sec) . 10:16:23 Inflation number: 4 The EUPHORA 2.0 x 15 Balloon ([id number]) was reinflated across the Mid CX , to 15 SALOME for 0:10 (min:sec) . 10:16:45 Balloon removed over the wire. 10:17:53 Place stent Inflation Number: 5 A TRISTA RX 2.0 x 18 stent ([id number]) was prepped and advanced across the Mid CX 90. The stent was deployed at 13 SALOME for 0:10 (min:sec) . 10:18:11 Stent catheter was removed intact over wire. 10:18:12 Guide catheter removed. 10:18:12 Wire removed. 10:18:19 EXOSEAL 6Fr (EX600) opened to sterile field. 10:18:31 Sheath removed intact; hemostasis achieved with Exoseal to the Right Femoral artery. 10:18:50 Procedure ended.(Physican Out) 10:19:18 Fluoroscopy time 07.60 minutes. 10:19:22 Fluoroscopy dose: 1573 mGy 10:19:22 Flurop Dose total: 1573 10:19:27 Contrast amount:Isovue 370 128ml. 10:19:28 Sharps counted by scrub and verified by R.N. 10:19:30 Insertion/operative site no bleeding no hematoma. 10:19:32 Post-op/insertion site Right Femoral artery dressed using a 4 x 4 and Tegaderm. 10:19:36 Post procedure rhythm: unchanged. 10:19:39 Estimated blood loss: 5 ml 10:19:40 Post procedure instruction explained to patient.Patient verbalizes understanding. 10:19:41 Patient needs reinforcement of post procedure teaching. 10:20:03 Procedure type changed to Cath procedure, Diagnostic procedure, LHC, LHC w/Coronaries, FFR/IVUS, FFR Initial, Intra-Coronary IVUS Initial, Sedation Charges, Moderate Sedation up to 15 minutes, PCI procedure, Coronary Stent, Coronary Stent Initial x2 10:20:04 Procedure and supply charges have been captured, reviewed, submitted and are correct. 10:20:09 Procedure Complication : No complications 10:20:12 See physician's report for complete and final results. 10:20:12 Vital chart was stopped 10:20:15 Report given to Pre/Post Procedure Room. 10:20:17 Patient transfered to Pre/Post Procedure Room with Stretcher. 10:20:22 Full Disclosure recording stopped 10:20:22 Procedure ended. 10:20:32 ACC-PCI Only Patient was given prescriptions, or instructed by Haseeb Contreras MD to start/continue the following medications upon discharge: Plavix 10:20:33 End room use (Document Last) 10:27:14 FEMSTOP Gold ([id number]) opened to sterile field. 10:27:21 Femstop placed over the right femoral artery at 150 mmHg. Hemostasis achieved. Intervention Summary Intervention Notes Time ActionType Lesion and Equipment Used Action# Pressure Duration Attributes 10:10:58 Place stent Mid LAD TRISTA RX 3.0 x 1 17 00:10 22 stent ([id number]) 10:11:04 Reinflate Mid LAD TRISTA RX 3.0 x 2 21 00:10 stent 22 stent balloon ([id number]) 10:11:29 Reinflate Mid LAD TRISTA RX 3.0 x 3 13 00:30 stent 22 stent balloon ([id number]) 10:15:44 Inflate Mid CX EUPHORA 2.0 x 1 13 00:10 balloon 15 Balloon ([id number]) 10:15:51 Reinflate Mid CX EUPHORA 2.0 x 2 13 00:10 balloon 15 Balloon ([id number]) 10:16:10 Reinflate Mid CX EUPHORA 2.0 x 3 13 00:10 balloon 15 Balloon ([id number]) 10:16:23 Reinflate Mid CX EUPHORA 2.0 x 4 15 00:10 balloon 15 Balloon ([id number]) 10:17:53 Place stent Mid CX TRISTA RX 2.0 x 5 13 00:10 18 stent ([id number]) Device Usage Item Name Manufacture Quantity Catalog Number Hospital Part Current Minimal Lot# / Charge Number Stock Stock Serial# Code ACIST Syringe Acist 1 30356 249493 072232 128752 20 (36689) Medical Systems Inc Bag Decanter Microtek 1 2001S 507693 98125 013757 5 () Medical Inc. Medline Cath Medline 1 [id number] 643030 15116 110844 5 Pack ([id number]) DIAGNOSTIC St Adithya 1 983448 660585 608003 111547 30 WIRE .035 260cm J wire (009072) ACIST Hand Acist 1 64260 594761 574826 782861 5 Control Medical (29295) Systems Inc ACIST Manifold Acist 1 95642 931077 547403 230789 5 (05476) Medical Systems Inc DIAGNOSTIC Cardinal 1 XQ6282 356016 81814 915476 30 Multipack 5Fr Health catheter set ([id number]) Tegaderm 4 x 4 3M 1 1626W 112493 558882 580340 5 (1626W) EMERALD Guide Cardinal 1 502-455 957342 576091 477906 5 Wire (502-455) Health MULTIPACK Cardinal 1 923960 5 Pigtail 5 Fr Health catheter MULTIPACK JL Cardinal 1 351078 5 4.0 5Fr Health catheter MULTIPACK 3DRC Cardinal 1 101815 5 5Fr catheter Health GUIDE 6FR EBU Medtronic 1 [id number] 515361 47374 988910 0 3.0 catheter ([id number]) CHOICE PT [place] 2 [id number] 663145 826903 114086 5 Extra Support Scientific 182cm wire ([id number]) [place] Traskwood 1 60264F 392442 035112401 919177 5 Verrata Plus pressure wire (44742S) INFLATOR Merit Merit 1 WQ1196 778185 502970 124085 15 FeedHenry Medical (RA9072) SHEATH 6FR Terumo 1 NHP016 661354 404358 744990 40 [place] (EUQ807) [place] Traskwood 1 70045G 046934 968611 543390 8 [place] IVUS Catheter (70098R) TRISTA RX 3.0 x Medtronic 1 [id number] 745198 2685666 283161 5 [id number] 22 stent ([id number]) EUPHORA 2.0 x Medtronic 1 [id number] 821851 247685 447866 5 [id number] 15 Balloon ([id number]) TRISTA RX 2.0 x Medtronic 1 [id number] 074822 9474500 155819 5 [id number] 18 stent ([id number]) EXOSEAL 6Fr Cardinal 1 EX600 174727 645286 816642 10 (EX600) Health FEMSTOP Gold St Adithya 1 X54700 642280 917160 541352 5 ([id number]) Signature Audit Monitor Stage Time Signature Unsigned Intra-Procedure 01/24/2019 Simran Basurto RT(R) 10:23:57 AM RT(R) 01/24/2019 10:27:00 AM Intra-Procedure 01/24/2019 Simran Basurto 10:27:53 AM RT(R) Signatures Monitor : Simran Basurto RT Signature : Date : Time : [place] [address] [place] [address]
[2019-01-24 09:00] VITALS: BP 135/84; BMI 40.3
[2019-01-24 09:14] LABS: BASOPHILS 0.4 % (0-2); EOSINOPHILS 2.8 % (0-7); HEMATOCRIT 33.5 % (36.0-48.0); LYMPHOCYTES 19.7 % (15-50); MCH 26.2 pg (26.0-34.0); MCHC 32.8 g/dL (31.0-37.0); MCV 79.8 fL (80.0-100.0); MEAN PLATELET VOLUME 9.7 fL (7.4-10.4); MONOCYTES 5.5 % (2-11); NEUTROPHILS 70.6 % (40-80); PLATELET COUNT 297 10x3/uL (130-400); RDW 15.3 % (11.5-14.5); WBC 10.6 10x3/uL (4.8-10.8)
[2019-01-24 09:20] LABS: ANION GAP 9.7 mmol/L (8-16); CALCIUM 8.8 mg/dL (8.5-10.1); CARBON DIOXIDE 28.3 mmol/L (21.0-32.0); CREATININE - SERUM 1.2 mg/dL (0.6-1.3)
--- NOTE | 2019-01-24 10:32 | NUR ---
PT ARRIVED BY STRETCHER. PLACED ON MONITORS. CALL LIGHT WITHIN REACH. NO FAMILY AT THIS TIME.
[2019-01-24] MEDS ORDERED: PLAVIX75 MG PO (10:37)
--- NOTE | 2019-01-24 10:47 | NUR ---
RIGHT GROIN DRESSING C/D/I. NO S/S OF HEMATOMA NOTED. FEMSTOP AT 140mmHg AT THIS TIME. PT TOLERATING WELL. TOLERATING SIPS OF SPRITE. C/O HEARTBURN FROM PLAVIX. WILL SEE IF SPRITE HELPS. PT IN [place]SE [place] AT THIS TIME. VSS.
--- NOTE | 2019-01-24 11:20 | NUR ---
PT RESTING COMFORTABLY. SINDY-HUGGER TURNED DOWN FOR COMFORT. VSS. RIGHT GROIN FEMSTOP AT 140mmHg. NO BLEEDING/HEMATOMA NOTED. RIGHT PEDAL PULSE PALPABLE. CALL LIGHT WITHIN REACH. PT REPORTS INDIGESTION IS BETTER.
--- NOTE | 2019-01-24 11:50 | NUR ---
RIGHT GROIN DRESSING C/D/I. NO S/S OF HEMATOMA NOTED. FEMSTOP DECREASED TO 120mmHg. RIGHT PEDAL PULSE PALPABLE. VSS.
--- NOTE | 2019-01-24 12:20 | NUR ---
FEMSTOP TO RIGHT GROIN WEANED DOWN TO 100mmHg. TOLERATING WELL. NO S/S OF HEMATOMA NOTED.
--- NOTE | 2019-01-24 12:35 | NUR ---
FEMSTOP WEANED TO 80mmHg. TOLERATING WELL. NO S/S OF HEMATOMA NOTED. VSS.
--- NOTE | 2019-01-24 12:50 | NUR ---
FEMSTOP WEANED TO 60mmHg. TOLERATING WELL. NO S/S OF HEMATOMA NOTED. VSS. CALL LIGHT WITHIN REACH.
--- NOTE | 2019-01-24 13:05 | NUR ---
FEMSTOP WEANED TO 20mmHg. TOLERATED WELL.
--- NOTE | 2019-01-24 13:15 | NUR ---
FEMSTOP OFF. PULLED BACK FROM PT'S GROIN. NO BLEEDING/HEMATOMA NOTED. DRESSING C/D/I. VSS.
--- NOTE | 2019-01-24 13:30 | NUR ---
RIGHT GROIN DRESSING C/D/I. NO S/S OF HEMATOMA NOTED. VSS. PT'S HEAD OF BED INC TO 30 DEGREES. TOLERATED WELL. PT SET UP WITH [employer] TRAY AND DRINK. DENIES PAIN/NAUSEA.
--- NOTE | 2019-01-24 14:00 | NUR ---
LEFT ARM PIV D/C'D WITH CATH TIP INTACT. PT TOLERATED WELL. PT AMBULATED TO RESTROOM. VOIDED WITHOUT DIFFICULTY. RIGHT GROIN DRESSING C/D/I. NO S/S OF HEMATOMA NOTED.
--- NOTE | 2019-01-24 14:30 | NUR ---
DISCUSSED DISCHARGE INSTRUCTIONS WITH PT. SHE VOICED UNDERSTANDING.
--- NOTE | 2019-01-24 14:35 | NUR ---
PT TAKEN OUT TO VEHICLE BY WHEELCHAIR. NO S/S OF DISTRESS NOTED. ALL BELONGINGS AND PAPERWORK IN HAND.
--- NOTE | 2019-01-24 18:07 | OP ---
PATIENT NAME: TARYN POLLOCK MEDICAL RECORD: [id number] :55 LOCATION:[facility] ADMISSION DATE: SURGEON: DAJA WEAVER MD DATE OF OPERATION: 01/24/2019 PROCEDURES: 1. PTCA stent LAD. 2. PTCA stent left circumflex. 3. Left heart catheterization. 4. Selective coronary angiography. 5. Left ventriculogram. 6. IFR. 7. Intravascular ultrasound. INDICATION: Angina, coronary artery disease, abnormal nuclear stress test. DESCRIPTION OF PROCEDURE: After informed consent was obtained and after a detailed description of risks, benefits as well as alternative therapies, the patient elected to proceed with angiogram and angioplasty. The right femoral area was prepped and draped in normal sterile fashion. The right femoral artery was cannulated via modified Seldinger technique with placement of 6-Slovak sheath. All catheters exchanged through this sheath. FINDINGS: The left ventriculogram was performed in standard 30-degree SUAREZ view reveals mildly depressed ejection fraction in the 40% to 45% range. SELECTIVE CORONARY ANGIOGRAPHY: 1. Left main showed no significant angiographic disease. 2. Left anterior descending has previously placed stents. There is 79% in-stent restenosis confirmed by intravascular ultrasound; however, IFR was not abnormal, but this correlated with the perfusion defect on nuclear stress test. 3. Left circumflex has previously placed stents, these are widely patent in the obtuse marginal with the circumflex itself, however, has 90% stenosis after the obtuse marginal. 4. The right coronary has previously placed stents, these are widely patent with no significant restenosis. No disease elsewise at the RCA or its branches. PTCA STENT OF THE LAD: Decision was made to undertake the intervention secondary to the 79% stenosis confirmed by intravascular ultrasound and the perfusion defect on nuclear stress test. Stenting was undertaken with a 3.0 x 22 mm [place] taken to 21 atmospheres. Result was 0% residual stenosis throughout. SECONDARY ENGLISH TEACHER STENT OF LEFT CIRCUMFLEX: The stent used was a 2.0 x 18 mm [place]. Result was 0% residual stenosis. OVERALL IMPRESSION: 1. Successful percutaneous transluminal coronary angioplasty stent of the left anterior descending going from 79% initial stenosis confirmed by intravascular ultrasound to 0% residual stenosis. 2. Successful percutaneous transluminal coronary angioplasty stent of left circumflex going from 90% initial stenosis to 0% residual stenosis. TRANSINT:[id number] Voice Confirmation ID: [id number] DOCUMENT ID: [id number] OPERATIVE REPORT [id number] TARYN POLLOCK JEFFREY MD at 1807 CC: [id number] DICTATION DATE: 01/24/19 1026 DATA COORDINATOR: 01/24/19 1233 DEP CLI 01/24/19 [facility] [address] [place] [id number]
== END 2019-01-24 14:30 | disposition home or self-care (01) ==
LOC: D.CATH 08:13
PROVIDERS: ATTEND Internal Medicine Interventional Cardiology
DX: I25.119 Atherosclerotic heart disease of native coronary artery with unspecified angina pectoris (principal); R94.30 Abnormal result of cardiovascular function study, unspecified; Z01.812 Encounter for preprocedural laboratory examination

== ENCOUNTER → 2019-12-21 08:02 | Outpatient (CLI) | payer OTHER | END | disposition home or self-care (01) | LOC: D.HCCECHO 08:02 | PROVIDERS: ATTEND Internal Medicine Cardiovascular Disease | DX: I10 Essential (primary) hypertension (principal); I25.119 Atherosclerotic heart disease of native coronary artery with unspecified angina pectoris ==

== ENCOUNTER 2020-01-30 07:14 | Outpatient (CLI) | payer MEDICARE, OTHER ==
[~2020-01-30] VITALS: Ht 157.5 cm; Wt 107.3 kg
--- NOTE | ~2020-01-30 | HEMODYNAMI ---
PATIENT:TARYN POLLOCK MEDICAL RECORD: [id number] : 55 LOCATION:[facility] ADMISSION DATE: 01/30/20 Generatedon:01/30/20209:59 Patient name: TAYRN POLLOCK Patient #: [id number] SSN: [id number] : 1955 Date of study: 01/30/2020 Page: Of Hemodynamic Procedure Report Patient Data Patient Demographics Procedure consent was obtained First Name: TARYN Gender: Female Last Name: PHILL : 1955 [facility] Initial: J Age: 64 year(s) Patient #: [id number] Race: SSN: [id number] Additional ID: [id number] Contact details Address: [address] [place] [address] State: [place] City: [place] Zip code: [address] Past Medical History Performed procedures and imaging results Date Procedure Procedure Results Comments 12/21/2019 Stress testing Positive->Intermediate with SPECT MPI risk Allergies Allergen Reaction Date Comments Reported Penicillins 10/09/2014 Sulfa drugs 10/09/2014 Other allergy 10/09/2014 Microbid Other allergy 10/09/2014 Other allergy 10/09/2014 biaxin Other allergy 10/09/2014 clindamycin Other allergy 11/30/2017 CLINDAMYCIN, MACROBID, SULFA, HTCZ, BIAKIN, PCN Other allergy 01/24/2019 BIAXIN, CLINDAMYCIN, DIOVAN, HYDTOCHLOROTHIAZIDE, LASIX, MACROBID, PCN, SULFA Other allergy 01/30/2020 BIAXIN, CLINAMYCIN, DIOVAN, HCTZ, LASIX, MACROBID, PCN, SULFA Admission Admission Data Admission Date: 01/30/2020 Admission Time: 7:14 Arrival Date: 01/30/2020 Arrival Time: 0:00 Admit Source: Other Insurance Payor: Private health insurance [facility] #: [id number] Height (in.): 62 BSA: 2.05 (m2) Height (cm.): 157.48 BMI: 43.25 (kg/m2) Weight (lbs.): 236.49 Weight (kg.): 107.27 Lab Results Lab Result Date: 01/30/2020 Lab Result Time: 0:00 Biochemistry Name Units Result Min Max BUN mg/dl 15 --(--*-)-- 7 18 Creatinine mg/dl 1.3 --(---*)-- 0.6 1.3 eGFR ml/min 44 *-(----)-- 90 120 NONAFRICAN CBC Name Units Result Min Max Hematocrit % 35.5 *-(----)-- 42 54 Hemoglobin g/dl 11.2 *-(----)-- 13.5 17.5 Procedure Procedure Types Cath Procedure Diagnostic Procedure [facility] w/Coronaries Sedation Charges Moderate Sedation up to 30 minutes PCI Procedure Coronary Stent Coronary Stent Initial Hemochron ACT Test Procedure Description Procedure Date Procedure Date: 01/30/2020 Procedure Start Time: 9:32 Procedure End Time: 9:57 Procedure Staff Name Function Hernandez Boggs MD Performing Physician Kimberly Goodman RN Nurse Simran Basurto RT Scrub Aydee Cavazos RT Monitor Procedure Data Cath Procedure Fluoroscopy Diagnostic fluoroscopy Total fluoroscopy Time: 4.9 time: 4.9 min min Diagnostic fluoroscopy Total fluoroscopy dose: dose: 1076 mGy 1076 mGy Contrast Material Contrast Material Type Amount (ml) Isovue 370 123 Entry Location Entry Primary Successful Side Size Upsize Upsize Entry Closure Succes sful Closure Location (Fr) 1 (Fr) 2 (Fr) Remarks Device Remarks Femoral Right 5 Fr Exoseal artery Estimated blood loss: 10 ml Diagnostic catheters Device Type Used For End Catheter Placement MULTIPACK JL 4.0 5Fr Procedure catheter MULTIPACK 3DRC 5Fr Procedure catheter MULTIPACK Pigtail 5 Fr Procedure catheter Procedure Complications No complications Procedure Medications Medication Administration Route Dosage Oxygen etCO2 Nasal cannula 2 l/min Lidocaine 2% added to field 20 Heparin Flush Bag added to field 2 bags (1000units/500ml NS) 0.9% NaCl I.V. 100 ml/hr Versed I.V. 2 mg Fentanyl I.V. 50 mcg Versed I.V. 1 mg Fentanyl I.V. 50 mcg Heparin Bolus I.V. 4000 units Integrilin (Bolus I.V. 9.5 ml 2mg/ml) Versed I.V. 1 mg Fentanyl I.V. 50 mcg Fentanyl I.V. 50 mcg Plavix P.O. 600 mg Lopressor I.V. 5 mg Hemodynamics Rest BSA: 2.05 (m2) HGB: 11.2 (g/dl) O2 Consumption: Estimated: 196.41 (ml/min) O2 Co nsumption indexed: Estimated:95.81 (ml/min/m) Heart Rate: 76 (bpm) Pressure Samples Time Site Value (mmHg) Purpose Heart Use Rate(bpm) 9:38 LV 155/13,20 Snapshot 80 Gradients Valve Time Site Site Mean SEP/DFP Peak To Heart Use 1 2 (mmHg) (sec/min) Peak Rate (mmHg) (bpm) Aortic 9:38 LV AO 81 Snapshots Pre Cath Intra NCS Post Cath Vital Signs Time Heart Resp SPO2 etCO2 NIBP (mmHg) Rhythm Pain Sedation Rate (ipm) (%) (mmHg) Status Level (bpm) 9:13:34 76 17 99 30.6 Measuring NSR 0 (11) 10(A) , No pain 9:14:03 77 10 99 29.1 173/97(145) NSR 0 (11) 10(A) , No pain 9:18:22 74 20 97 28.4 166/93(114) NSR 0 (11) 10(A) , No pain 9:22:45 78 19 96 35.9 163/92(142) NSR 0 (11) 10(A) , No pain 9:27:05 75 19 96 11.9 154/84(127) NSR 0 (11) 10(A) , No pain 9:31:21 71 17 93 15.7 146/91(119) NSR 0 (11) 10(A) , No pain 9:35:35 76 17 94 33.6 154/87(121) NSR 0 (11) 9(A) , No pain 9:39:51 82 20 94 22.4 164/91(133) NSR 0 (11) 9(A) , No pain 9:44:07 79 17 94 36.7 164/91(118) NSR 0 (11) 9(A) , No pain 9:48:25 81 17 94 35.9 150/85(130) NSR 0 (11) 9(A) , No pain 9:52:39 82 18 94 31.4 170/103(140) NSR 0 (11) 10(A) , No pain 9:57:01 77 17 95 35.9 173/94(142) NSR 0 (11) 10(A) , No pain Medications Time Medication Route Dose Verified Delivered Reason Notes Effectiveness by by 9:15:48 Oxygen etCO2 2 Hernandez Abernathyie used for Nasal l/min St Pablo Goodman RN procedure cannula 9:15:54 Lidocaine 2% added 20ml Hernandez Buffie for local to vial St Pablo Goodman RN anesthetic field 9:16:01 Heparin Flush added 2 Hernandez Buffie used for Bag to bags St Pablo Goodman RN procedure (1000units/500ml field CRAWFORD NS) 9:16:14 0.9% NaCl I.V. 100 Hernandez Abernathyie Per physician ml/hr St Pablo Goodman RN, MD 9:23:04 Versed I.V. 2 mg Hernandez Abernathyie for sedation St Pablo Goodman RN, MD 9:23:10 Fentanyl I.V. 50 Hernandez Buffie for sedation mcg St Pablo Goodman RN, MD 9:30:40 Versed I.V. 1 mg Hernandez Abernathyie for sedation St Pablo Goodman RN, MD 9:30:43 Fentanyl I.V. 50 Hernandez Buffie for sedation mcg St Pablo Goodman RN, MD 9:36:01 Versed I.V. 1 mg Hernandez Abernathyie for sedation St Pablo Goodman RN, MD 9:36:06 Fentanyl I.V. 50 Hernandez Abernathyie for sedation mcg St Pablo Goodman RN, MD 9:40:17 Heparin Bolus I.V. 4000 Hernandez Abernathyie for verifi ed units St Pablo Goodman RN anticoagulation with dr MD cruz 9:42:51 Integrilin I.V. 9.5 Hernandez Abernathyie for Wasted (Bolus 2mg/ml) ml St Pablo Goodman RN antiplatelet 0.5 ml MD therapy of vial 9:47:39 Fentanyl I.V. 50 Hernandez Buffie for sedation mcg St Pablo Goodman RN, MD 9:52:11 Lopressor I.V. 5 mg Hernandez Harris Per physician St Pablo Goodman RN, MD 9:56:05 Plavix P.O. 600 Hernandez Harris for mg St Pablo Goodman RN antiplatelet therapy Procedure Log Time Note 8:29:25 Informed consent obtained and on chart 8:32:53 Admit Source: Other 8:32:58 Procedure Status Elective Heart Cath (OP). 8:33:00 Time tracking: Regular hours (M-F 7:00 - 5:00) 8:33:05 Plan of Care:Hemodynamics will remain stable., Cardiac rhythm will remai n stable., Comfort level will be maintained., Respiratory function will remain adequate., Patient/ family verbilizes understanding of procedure., Procedure tolerated without complication., Recovers from procedure without complications.. 8:33:44 H&P Date Dictated: 01/02/2020 Within 30 days and on chart.. 8:34:36 Alarms reviewed by R. N. 8:34:36 Sharps counted by scrub and verified by R.N. 8:34:41 Lab results completed and on chart. 8:34:57 Stress Test: yes; abnormal anterior and apical 8:35:07 Arrival Date: 01/30/2020 12:00:00 AM 8:35:12 Insurance Payor : Private health insurance 8:36:02 Patient Height : 62 inches 8:36:11 Patient Weight : 236.49 lbs 8:36:23 Diagnostic Cath Status : Elective 8:38:17 Patient allergic to Other allergyBIAXIN, CLINAMYCIN, DIOVAN, HCTZ, LASIX , MACROBID, PCN, SULFA 8:46:14 Lab Result : Hemoglobin 11.2 g/dl 8:46:14 Lab Result : eGFR NONAFRICAN 44 ml/min 8:46:14 Lab Result : BUN 15 mg/dl 8:46:14 Lab Result : Creatinine 1.3 mg/dl 8:46:14 Lab Result : Hematocrit 35.5 % 8:47:50 Risk of Mortality: 0.1 8:47:52 Risk of blood transfusion: 1.7 8:47:55 Risk of DEVON: 2.6 8:55:14 Kimberly Goodman RN sent for patient. Start room use. 9:04:38 Patient received from Pre/Post Procedure Room to CCL 2 Alert and te reina Tansferred to table in Supine position. 9:04:40 Warm blankets applied, and oliver hugger turned on for patient comfort. 9:04:40 Correct patient and procedure confirmed by team. 9:04:40 ECG and BP/O2 sat monitors applied to patient. 9:11:44 Vital chart was started 9:11:45 Full Disclosure recording started 9:11:47 Pre-procedure instructions explained to patient. 9:11:47 Pre-op teaching completed and patient verbalized understanding. 9:13:20 Family unavailable. 9:13:24 Patient NPO since Midnight. 9:13:28 Is the patient allergic to Iodine/contrast media? No. 9:13:30 Was the patient premedicated? N/A 9:13:40 Is patient on blood thinner?No 9:13:41 Patient diabetic? No. 9:13:43 If diabetic: On Metformin? N/A 9:13:46 Patient not . Patient is over age 55. 9:13:49 ----Pre-sedation anethsthesia assessment.---- 9:13:52 Previous problem with sedation/anesthesia? No ? 9:13:53 Snore? Yes 9:13:54 Sleep apnea? Yes 9:13:56 Deviated septum? No 9:13:57 Opens mouth fully? Yes 9:13:58 Sticks out tongue? Yes 9:14:05 Airway obstruction? Yes ? 9:14:14 Dentures? Yes IN TIGHT 9:14:21 Patient pain scale 0/10 ?. 9:14:26 IV patent on arrival in left antecubital with 0.9% NaCl at O. 9:14:33 Right groin area was prepped with chlora-prep and draped in sterile fas ion 9:14:45 Use device set Femoral Dx 9:14:47 ACIST Syringe (20408) opened to sterile field. 9:14:47 Bag Decanter (2002) opened to sterile field. 9:14:48 Medline Cath Pack ([id number]) opened to sterile field. 9:14:49 ACIST Hand Control (56239) opened to sterile field. 9:14:49 ACIST Manifold (15020) opened to sterile field. 9:14:50 DIAGNOSTIC Multipack 5Fr catheter set (TH5222) opened to sterile field. 9:14:51 SHEATH 5FR Lares (LTU260) opened to sterile field. 9:14:51 EMERALD Guide Wire (502-748) opened to sterile field. 9:14:59 Baseline sample Acquired. 9:15:05 Rhythm: sinus rhythm 9:15:48 Oxygen 2 l/min etCO2 Nasal cannula was administered by Kimberly Goodman RN; u sed for procedure; Verbal order read back and verified. 9:15:54 Lidocaine 2% 20ml vial added to field was administered by Kimberly Goodman RN ; for local anesthetic; Verbal order read back and verified. 9:16:01 Heparin Flush Bag (1000units/500ml NS) 2 bags added to field was adminis tered by Kimberly Goodman RN; used for procedure; Verbal order read back and verified. 9:16:14 0.9% NaCl 100 ml/hr I.V. was administered by Kimberly Goodman RN; Per physici an; Verbal order read back and verified. 9:21:58 --------ALL STOP TIME OUT------ 9:21:58 Final Timeout: patient, procedure, and site verified with staff and phys harrison. All members of the team are in agreement. 9:21:59 Right groin site verified by team. 9:22:03 Fire Safety Assessment: A--An alcohol-based skin anteseptic being used preoperatively., C--Open oxygen or nitrous oxide is being used., D--An ESU, laser, or fiber-optic light is being used. 9:22:06 Physical assessment completed. ASA score P 2 - A patient with mild syste jason disease as per Hernandez Boggs MD. 9:22:10 3b) 30-44 Moderately reduced kidney function. 9:22:13 Maximum allowable contrast dose (3.7 X eGFR X 0.75)122 ml. 9:22:16 Sedation plan: IV Moderate Sedation Medication:Versed, Fentanyl 9:23:04 Versed 2 mg I.V. was administered by Kimberly Goodman RN; for sedation; Verba l order read back and verified. 9:23:10 Fentanyl 50 mcg I.V. was administered by Kimberly Goodman RN; for sedation; V erbal order read back and verified. 9:30:40 Versed 1 mg I.V. was administered by Kimberly Goodman RN; for sedation; Verba l order read back and verified. 9:30:43 Fentanyl 50 mcg I.V. was administered by Kimberly Goodman RN; for sedation; V erbal order read back and verified. 9:32:45 Procedure started. 9:32:49 Local anesthetic to right femoral artery with Lidocaine 2% by Hernandez Boggs MD.INITIAL ACCESS ONLY 9:34:08 A 5 Fr sheath was inserted into the Right Femoral artery 9:34:15 A MULTIPACK JL 4.0 5Fr catheter was advanced over the wire and used for Procedure. 9:34:20 LCA angiography performed. 9:34:23 Injector settings: Ml/sec: 3, Volume: 6, 9:35:56 Catheter removed. 9:36:01 Versed 1 mg I.V. was administered by Kimberly Goodman RN; for sedation; Verba l order read back and verified. 9:36:04 A MULTIPACK 3DRC 5Fr catheter was advanced over the wire and used for Procedure. 9:36:06 Fentanyl 50 mcg I.V. was administered by Kimberly Goodman RN; for sedation; V erbal order read back and verified. 9:37:01 RCA angiography performed. 9:37:04 Injector settings: Ml/sec: 3, Volume: 6, 9:37:07 ACCDominant side:Right 9:37:14 A MULTIPACK Pigtail 5 Fr catheter was advanced over the wire and used fo r Procedure. 9:38:21 LV hemodynamics recorded. 9:38:23 Injector settings: Ml/sec: 5, Volume: 15, 9:38:26 LV gram done using SUAREZ 9:38:31 EF : 40 % 9:38:37 Catheter removed. 9:38:38 Proceeding to intervention. 9:38:[address] AVILA PCI 9:38:47 SHEATH 6FR Lares (YRN499) opened to sterile field. 9:38:49 WHISPER 300cm guide wire ([id number]) opened to sterile field. 9:38:51 INFLATOR Merit BasixCompak (ES5101) opened to sterile field. 9:38:54 GUIDE 6FR XBLAD 3.5 catheter ([id number]) opened to sterile field. 9:38:58 ADVANC ED 9:39:15 Pre PCI Site: [place] mLAD has 80% stenosis. 9:39:42 6 Fr XBLAD 3.5 guide catheter was inserted over the wire 9:40:17 Heparin Bolus 4000 units I.V. was administered by Kimberly Goodman RN; for anticoagulation; verified with dr cruz Verbal order read back and verified. 9:41:16 WHISPER 300 wire advanced. 9:41:54 Wire advanced across lesion. 9:42:51 Integrilin (Bolus 2mg/ml) 9.5 ml I.V. was administered by Kimberly Goodman RN ; for antiplatelet therapy; Wasted 0.5 ml of vial Verbal order read back and verified. 9:44:07 Place stent Inflation Number: 1 A TRISTA RX 3.0 x 12 stent ([id number]) was prepped and advanced across the Mid LAD 80. The stent was deployed at 14 SALOME for 0:00 (min:sec) . 9:45:33 Stent catheter was removed intact over wire. 9:45:34 Wire removed. 9:46:09 Pre PCI Site: [place] Circ has 90% stenosis. 9:46:20 WHISPER 300 wire advanced. 9:47:39 Fentanyl 50 mcg I.V. was administered by Kimberly Goodman RN; for sedation; V erbal order read back and verified. 9:49:05 Inflate balloon Inflation number: 1 A EMERGE OTW 2.5 x 15 balloon ([id number]) was prepped and advanced across the Mid CX 90, then inflated to 8 SALOME for 0:00 (min:sec) . 9:50:00 Inflation number: 2 The EMERGE OTW 2.5 x 15 balloon ([id number]) was reinflated across the Mid CX , to 10 SALOME for 0:00 (min:sec) . 9:50:22 Balloon removed over the wire. 9:50:23 Wire removed. 9:50:23 Guide catheter removed. 9:50:33 EXOSEAL 6Fr (EX600) opened to sterile field. 9:50:49 Sheath removed intact; hemostasis achieved with Exoseal to the Right Fem oral artery. 9:50:54 Fluoroscopy time 04.90 minutes. 9:50:58 Fluoroscopy dose: 1076 mGy 9:50:58 Flurop Dose total: 1076 9:51:04 Dose Area Product 71168 mGy/cm. 9:51:08 Contrast amount:Isovue 370 123ml. 9:51:13 Maximum allowable dose exceeded? Yes. 9:51:14 Sharps counted by scrub and verified by R.N. 9:51:16 Procedure ended.(Physican Out) 9:51:51 Post-op/insertion site Right Femoral artery dressed using a 4 x 4 and Tegaderm. 9:51:58 Post right femoral artery:stable, soft, clean and dry 9:52:00 Post Procedure Pulses reassessed and unchanged 9:52:06 Post-procedure physical assessment completed. ASA score P 2 - A patient with mild systemic disease as per Hernandez Boggs MD. 9:52:09 Post procedure rhythm: unchanged. 9:52:11 Lopressor 5 mg I.V. was administered by Kimberly Goodman RN; Per physician; V erbal order read back and verified. 9:52:12 Estimated blood loss: 10 ml 9:52:13 Post procedure instruction explained to patient.Patient verbalizes understanding. 9:52:14 Patient needs reinforcement of post procedure teaching. 9:52:30 Procedure type changed to Cath procedure, Diagnostic procedure, LHC, [facility] w/Coronaries, Sedation Charges, Moderate Sedation up to 30 minutes, PCI procedure, Coronary Stent, Coronary Stent Initial, Hemochron ACT Test 9:53:36 Procedure and supply charges have been captured, reviewed, submitted and are correct. 9:53:41 Procedure Complication : No complications 9:53:45 [facility] Findings: MVD- PCI performed (see procedure note) 9:53:46 Operative report dictated upon procedure completion. 9:53:47 See physician's report for complete and final results. 9:55:49 ACT drawn and resulted at 211 seconds. (normal therapeutic range 180-240 seconds). 9:56:05 Plavix 600 mg P.O. was administered by Kimberly Goodman RN; for antiplatelet therapy; Verbal order read back and verified. 9:57:30 Vital chart was stopped 9:57:36 Report given to Pre/Post Procedure Room. 9:57:39 Patient transfered to Pre/Post Procedure Room with Stretcher. 9:57:41 Procedure ended. 9:57:41 Full Disclosure recording stopped 9:57:52 ACC-PCI Only Patient was given prescriptions, or instructed by Feroz Boggs MD to start/continue the following medications upon discharge: Plavix 9:57:54 End room use (Document Last) 9:58:27 End room use (Document Last) 9:58:56 End room use (Document Last) Intervention Summary Intervention Notes Time ActionType Lesion and Equipment Used Action# Pressure Duration Attributes 9:44:07 Place stent Mid LAD TRISTA RX 3.0 x 1 14 00:00 12 stent ([id number]) 9:49:05 Inflate Mid CX EMERGE OTW 2.5 1 8 00:00 balloon x 15 balloon ([id number]) 9:50:00 Reinflate Mid CX EMERGE OTW 2.5 2 10 00:00 balloon x 15 balloon ([id number]) Device Usage Item Name Manufacture Quantity Catalog Number Hospital Part Current Minimal Lot# / Charge Number Stock Stock Serial# Code ACIST Syringe Acist 1 42053 843415 332573 403510 20 (84574) Medical Systems Inc Bag Decanter Microtek 1 2001S 411182 17691 414033 5 (2002S) Medical Inc. Medline Cath Medline 1 [id number] 535839 72461 338933 5 Pack ([id number]) ACIST Hand Acist 1 44721 156563 117239 128520 5 Control Medical (16333) Systems Inc ACIST Manifold Acist 1 57207 126067 322440 390301 5 (35999) Medical Systems Inc DIAGNOSTIC Cardinal 1 BS1150 776447 77502 752250 30 Multipack 5Fr Health catheter set (MV5942) SHEATH 5FR Terumo 1 YNI944 521317 520403 579043 5 Lares (SJC258) EMERALD Guide Cardinal 1 502-455 863375 513999 076251 5 Wire (502-455) Health MULTIPACK JL Cardinal 1 983270 5 4.0 5Fr Health catheter MULTIPACK 3DRC Cardinal 1 754980 5 5Fr catheter Health MULTIPACK Cardinal 1 189953 5 Pigtail 5 Fr Health catheter SHEATH 6FR Terumo 1 ZBC865 071622 243806 464383 40 Lares (IVN621) WHISPER 300cm Owens 1 [id number] 507281 567146 234732 5 guide wire Vascular (4083014WH) INFLATOR Merit Merit 1 BA7252 632086 082995 158684 15 BasixCompak Medical (DD9417) GUIDE 6FR Cardinal 1 [id number] 144256 158329 554755 10 XBLAD 3.5 Health catheter ([id number]) TRISTA RX 3.0 x Medtronic 1 [id number] 882522 6810307 612372 5 [id number] 12 stent ([id number]) EMERGE OTW 2.5 [place] 1 [id number] 012672 891242 553212 5 [id number] x 15 balloon Scientific ([id number]) EXOSEAL 6Fr Cardinal 1 EX600 845785 053419 158813 10 (EX600) Health Signature Audit [place] Stage Time Signature Unsigned Intra-Procedure 01/30/2020 Aydee Cavazos 9:58:27 AM RT(R) Intra-Procedure 01/30/2020 Kimberly Goodman RN 9:58:56 AM Intra-Procedure 01/30/2020 Hernandez Rios 9:59:16 AM Pablo CRAWFORD Signatures Performing Physician : Signature : Hernandez Boggs MD Date : Time : Nurse : Kimberly Goodman RN Signature : Date : Time : Monitor : Aydee Cavazos Signature : RT Date : Time : [facility] [address] [place] [address]
[2020-01-30] MEDS ORDERED: ZETIA10 MG PO (07:57)
[2020-01-30] MEDS ORDERED: MICARDIS40 MG PO (07:59)
[2020-01-30] MEDS ORDERED: BUPROPION HCL150 M1 PO (07:59)
[2020-01-30] MEDS ORDERED: AVAPRO300 MG PO (07:59)
[2020-01-30 08:21] VITALS: BP 153/77; Ht 157.5 cm; Wt 107.3 kg
[2020-01-30 08:21] LABS: BASOPHILS 0.3 % (0-2); EOSINOPHILS 0.5 % (0-7); HEMATOCRIT 35.5 % (36.0-48.0); HEMOGLOBIN 11.2 g/dL (12-16); IMMATURE GRANULOCYTES 3.1 % (0-5); LYMPHOCYTES 19.2 % (15-50); MCH 26.6 pg (26.0-34.0); MCHC 31.5 g/dL (31.0-37.0); MCV 84.3 fL (80.0-100.0); MEAN PLATELET VOLUME 9.6 fL (7.4-10.4); MONOCYTES 4.1 % (2-11); NEUTROPHILS 72.8 % (40-80); PLATELET COUNT 353 10x3/uL (130-400); RBC 4.21 10x6/uL (4.00-5.40); RDW 15.3 % (11.5-14.5); WBC 13.9 10x3/uL (4.8-10.8)
[2020-01-30 08:34] LABS: CHOL - HDL RATIO 2.9 ratio (2.3-4.1); LDL-HDL RATIO 1.4 ratio (1.5-3.5)
[2020-01-30 08:45] LABS: ANION GAP 10.1 mmol/L (8-16); CARBON DIOXIDE 29.5 mmol/L (21.0-32.0); CREATININE - SERUM 1.3 mg/dL (0.6-1.3); POTASSIUM - SERUM 3.6 mmol/L (3.5-5.1)
[2020-01-30] MEDS ORDERED: PLAVIX75 MG PO (10:10)
--- NOTE | 2020-01-30 10:15 | NUR ---
PT RECEIVED BACK FROM BLUE PRINTS TRIMMER VIA STRETCHER FOR RECOVERY. PT AWAKE BUT DROWSY, DENIES PAIN OR DISCOMFORT. IV PATENT INFUSING VIA ORDERS. PT PLACED ON CARDIAC MONITORS AND O2 VIA NC AT 2L. HR NSR RATE 72, BP 163/89, RR 12, SAT 97. R GROIN W 6FR EXOCELE, DRESSING CDI NO S/S HEMATOMA OR BLEEDING NOTED. LEG PINK AND WARM, PEDAL PULSES PALPABLE. PT INSTRUCTED TO KEEP HEAD ON PILLOW AND LEG STRAIGHT, SHE VERBALIZED UNDERSTANDING. CALL LIGHT IN REACH, AT BS.
[2020-01-30] MEDS ORDERED: PRAVACHOL20 MG PO (10:45)
--- NOTE | 2020-01-30 10:45 | NUR ---
PT RESTING COMFORTABLY, STATES HEARTBURN BETTER. R GROIN SOFT, DRESSING REMAINS CDI NO S/S HEMATOMA NOTED. VSS. CALL LIGHT IN REACH
--- NOTE | 2020-01-30 11:30 | NUR ---
PT RESTING W EYES CLOSED. R GROIN SOFT, DRESSING REMAINS CDI NO S/S BLEEDING OR HEMATOMA. VSS. CALL LIGHT IN REACH
--- NOTE | 2020-01-30 12:00 | NUR ---
R GROIN SOFT, DRESSING CDI NO S/S HEMATOMA. VSS. PT RESTING W/O COMPLAINTS. CALL LIGHT IN REACH
--- NOTE | 2020-01-30 12:40 | NUR ---
R GROIN SOFT, DRESSING CDI NO S/S HEMATOMA OR BLEEDING. HOB ELEVATED SLIGHTLY. SANDWICH AND DRINK SERVED. VSS. CALL LIGHT IN REACH
--- NOTE | 2020-01-30 13:20 | NUR ---
PT TOLEARTED LUNCH W/O PROBLEMS. R GROIN SOFT, DRESSING REMAINS CDI NO S/S HEMATOMA NOTED. CALL LIGHT IN REACH
--- NOTE | 2020-01-30 13:40 | NUR ---
DISCHARGE INSTRUCTIONS REVIEWED W PT AND , BOTH VERBALIZED UNDERSTANDING. REVIEWED MEDICATIONS AND CHANGES. EXPRESSED IMPORTANCE OF STARTING PLAVIX AND PRAVASTATIN TOMORROW. IV REMOVED W CATH INTACT, MONITORS REMOVED. R GROIN SOFT, NO S/S HEMATOMA. PT AMBULATED TO BR, VOIDING W/O DIFFICULITY.
--- NOTE | 2020-01-30 13:58 | NUR ---
PT DISCHARGED VIA WC TO WAITING IN PRIVATE VEHICLE. PT HAD ALL BELONGINGS AND DISCHARGE PAPERWORK IN HAND
--- NOTE | 2020-01-31 10:50 | OP ---
PATIENT NAME: TARYN POLLOCK MEDICAL RECORD: [id number] :55 LOCATION:D.CAT ADMISSION DATE: SURGEON: KEISHA OLIVA MD DATE OF OPERATION: 01/30/2020 PROCEDURE: Left heart catheterization, selective coronary angiography, right femoral artery approach. CATHETERS: A 5-Ghanaian sheath, 5/4 left and right Susana, 5/4 pig. The procedure was well tolerated. The patient returned to the de luna, sheath removed. ExoSeal device placed. FINDINGS: Left ventriculography in 30-degree SUAREZ view; normal wall motion and normal systolic function. CORONARY ANATOMY: LEFT MAIN: Left main is free of disease. LAD: Just proximal to prior stent has 80% stenosis, end stent restenosis. Rest of the stent is widely patent. CIRCUMFLEX: The true circumflex is jailed from to the previously placed stent to the OM, better than 90% with diffuse stenosis distally. RIGHT CORONARY ARTERY: Previously stenting is widely patent, no progression of northway disease. IMPRESSION: Intervention to left anterior descending, start momentarily. DESCRIPTION OF PROCEDURE: A 5-Ghanaian sheath was exchanged for a 6-Ghanaian sheath. XB LAD guiding catheter gave excellent guiding catheter support followed by 300-cm whisper wire was placed to the tightly occluded LAD down this portion of vessel. Stent deployed was 3.0 x 12 mm Robert drug-eluting stent up to 14 atmospheres, showed excellent resolution of 80% stenosis, no significant residual. Next, we placed the indwelling wire addressing the stent in the OM down this portion of the circumflex. Circumflex was addressed with a 2.5 x 15 mm Oliver balloon up to 10 atmospheres. Final angiography shows excellent resolution of 80% stenosis, no significant residual. IMPRESSION: Successful stenting to left anterior descending, successful percutaneous transluminal coronary angioplasty to circumflex Sheath closed with ExoSeal device. Plavix was loaded in the lab. TRANSINT:[id number] Voice Confirmation ID: [id number] DOCUMENT ID: [id number] KEISHA OLIVA MD at 1050 CC: [id number] DICTATION DATE: 01/30/20 1001 CRM MARKETING SPECIALIST: 01/30/20 1356 DEP CLI 01/30/20 [address] [place] [address]
== END 2020-01-30 13:55 | disposition home or self-care (01) ==
LOC: D.CATH 07:14
PROVIDERS: ATTEND Internal Medicine Interventional Cardiology
DX: I25.119 Atherosclerotic heart disease of native coronary artery with unspecified angina pectoris (principal); E78.5 Hyperlipidemia, unspecified; I10 Essential (primary) hypertension; R06.09 Other forms of dyspnea; R94.39 Abnormal result of other cardiovascular function study; E03.9 Hypothyroidism, unspecified
CPT/HCPCS: 93458; 92920; C9600

== ENCOUNTER 2020-04-23 07:46 | Observation (INO) | payer MEDICARE, OTHER ==
[2020-04-23] VITALS (8 sets, daily range): BP systolic 122–151; BP diastolic 62–85; Ht 157.5 cm; Wt 108.6 kg
[~2020-04-23] VITALS: Ht 157.5 cm; Wt 108.6 kg
[~2020-04-23 07:46] MED LIST changes: +AVAPRO300 MG PO; +BUPROPION HCL150 M1 PO; +MICARDIS40 MG PO; +PRAVACHOL20 MG PO; +ZETIA10 MG PO
[2020-04-23 08:07] LABS: BASOPHILS 0.3 % (0-2); EOSINOPHILS 0.5 % (0-7); HEMOGLOBIN 11.8 g/dL (12-16); LYMPHOCYTES 15.8 % (15-50); MCH 25.8 pg (26.0-34.0); MCHC 31.9 g/dL (31.0-37.0); MEAN PLATELET VOLUME 9.2 fL (7.4-10.4); MONOCYTES 4.2 % (2-11); NEUTROPHILS 75.2 % (40-80); PLATELET COUNT 365 10x3/uL (130-400); RBC 4.57 10x6/uL (4.00-5.40); RDW 16.4 % (11.5-14.5); WBC 15.1 10x3/uL (4.8-10.8)
[2020-04-23 08:16] LABS: APTT 28.8 SECONDS (22.8-39.4); INR 0.9 (0.85-1.17); PROTIME 12.1 SECONDS (11.6-15.0)
[2020-04-23 08:18] LABS: CALC OSMOLALITY 270 mosm/kg (275-300); CALCIUM 9.1 mg/dL (8.5-10.1); CARBON DIOXIDE 26.2 mmol/L (21.0-32.0); CHLORIDE - SERUM 97 mmol/L (98-107); CREATININE - SERUM 1.4 mg/dL (0.6-1.3); GLUCOSE 93 mg/dL (74-106); POTASSIUM - SERUM 4.3 mmol/L (3.5-5.1); SODIUM 132 mmol/L (136-145); UREA NITROGEN 28 mg/dL (7-18); eGFR NON AFRICAN AMERICAN 40 mL/min (90-120)
[2020-04-23 08:36] LABS: ALBUMIN 2.9 g/dL (3.4-5.0); ALKALINE PHOSPHATASE 174 U/L (30-120); ALT (SGPT) 33 U/L (10-68); BILIRUBIN - TOTAL 0.26 mg/dL (0.2-1.3); CKMB 0.8 U/L (0.0-3.6); CREATINE KINASE 64 UL (21-215); PROTEIN - SERUM 7.5 g/dL (6.4-8.2)
[2020-04-23 08:38] LABS: TROPONIN-I < 0.017 ng/mL (0.000-0.060)
--- NOTE | 2020-04-23 08:58 | NUR ---
CHEST HEAVINESSS IMPROVED BUT NOW C/O "BAD KIRK" DR CASTRO NOTIFIED
--- NOTE | 2020-04-23 09:14 | NUR ---
BS REPORT TO VANDA, RN
--- NOTE | 2020-04-23 09:49 | NUR ---
PT LAYING IN BED. RESPIRATIONS ARE EVEN AND UNLABORED. FAMILY AT BEDSIDE. PT GIVEN TYLENOL FOR HEADACHE. VOICES NO OTHER NEEDS AT THIS TIME. VSS. WILL CONTINUE TO MONITOR.
--- NOTE | 2020-04-23 11:45 | NUR ---
PT PROVIDED WITH MEAL TRAY.
[2020-04-23 14:18] LABS: CKMB 0.9 U/L (0.0-3.6); CREATINE KINASE 60 UL (21-215); TROPONIN-I < 0.017 ng/mL (0.000-0.060)
--- NOTE | 2020-04-23 15:16 | NUR ---
PT REPORTS IV TO RIGHT AC IS CAUSING HER PAIN. IV D/C CATH INTACT DRESSING APPLIED NO BLEEDING NOTED. RESITED IV TO RIGHT FOREARM
--- NOTE | 2020-04-23 16:29 | NUR ---
PT PROVIDED WITH MEAL TRAY. NO DISTRESS NOTED. PT VOICES NO OTHER NEEDS AT THIS TIME. WILL CONTINUE TO MONITOR.
--- NOTE | 2020-04-23 19:08 | NUR ---
REPORT GIVEN TO CARINA CANAS
[2020-04-23 21:10] LABS: CREATINE KINASE 62 UL (21-215)
[2020-04-23 21:15] LABS: TROPONIN-I < 0.017 ng/mL (0.000-0.060)
[2020-04-23] MEDS ORDERED: NORVASC5 MG PO (22:46)
[2020-04-23] MEDS ORDERED: AMBIEN5 MG PO (22:48)
[2020-04-24] VITALS: BP 153/77
[2020-04-24 03:10] LABS: BASOPHILS 0.2 % (0-2); EOSINOPHILS 0.2 % (0-7); HEMATOCRIT 35.2 % (36.0-48.0); HEMOGLOBIN 11.2 g/dL (12-16); IMMATURE GRANULOCYTES 2.3 % (0-5); LYMPHOCYTES 15.3 % (15-50); MCH 25.9 pg (26.0-34.0); MCHC 31.8 g/dL (31.0-37.0); MCV 81.3 fL (80.0-100.0); MEAN PLATELET VOLUME 9.4 fL (7.4-10.4); MONOCYTES 4.1 % (2-11); NEUTROPHILS 77.9 % (40-80); PLATELET COUNT 340 10x3/uL (130-400); RBC 4.33 10x6/uL (4.00-5.40); RDW 16.5 % (11.5-14.5); WBC 12.6 10x3/uL (4.8-10.8)
[2020-04-24 03:33] LABS: ALBUMIN 2.7 g/dL (3.4-5.0); ALKALINE PHOSPHATASE 162 U/L (30-120); ALT (SGPT) 28 U/L (10-68); BILIRUBIN - TOTAL 0.27 mg/dL (0.2-1.3); CALC OSMOLALITY 269 mosm/kg (275-300); CALCIUM 8.7 mg/dL (8.5-10.1); CARBON DIOXIDE 26.5 mmol/L (21.0-32.0); CHLORIDE - SERUM 100 mmol/L (98-107); CKMB 0.9 U/L (0.0-3.6); CREATINE KINASE 61 UL (21-215); CREATININE - SERUM 1.5 mg/dL (0.6-1.3); GLUCOSE 91 mg/dL (74-106); POTASSIUM - SERUM 4.1 mmol/L (3.5-5.1); PROTEIN - SERUM 6.9 g/dL (6.4-8.2); SODIUM 133 mmol/L (136-145); UREA NITROGEN 23 mg/dL (7-18); eGFR NON AFRICAN AMERICAN 37 mL/min (90-120)
[2020-04-24 03:35] LABS: TROPONIN-I < 0.017 ng/mL (0.000-0.060)
[2020-04-24 04:00] VITALS: BP 157/77
[2020-04-24 08:07] VITALS: BP 146/80
[2020-04-24] MEDS ORDERED: RANEXA500 MG PO (10:16)
--- NOTE | 2020-04-24 10:54 | NUR ---
PT DENIES CHEST PAIN AT PRESENT. NO SOB. GETTING TO GO HOME TODAY. TELEMETRY REMOVED.
--- NOTE | 2020-04-24 11:58 | NUR ---
PT IV REMOVED. INSTRUCTIONS SIGNED. SCRIPT GIVEN TO PT.
== END 2020-04-24 11:59 | disposition home or self-care (01) ==
LOC: D.ER 07:46 → D.EDHOLD 09:31 → OBSVTIME 09:31 → D.M2 09:31
PROVIDERS: Family Medicine; ADMIT Family Medicine; ATTEND Family Medicine
DX: R07.9 Chest pain, unspecified (principal); K21.9 Gastro-esophageal reflux disease without esophagitis; I25.10 Atherosclerotic heart disease of native coronary artery without angina pectoris; I10 Essential (primary) hypertension; E78.5 Hyperlipidemia, unspecified; I25.2 Old myocardial infarction; E07.9 Disorder of thyroid, unspecified; Z99.81 Dependence on supplemental oxygen; R06.00 Dyspnea, unspecified; D72.829 Elevated white blood cell count, unspecified; I34.0 Nonrheumatic mitral (valve) insufficiency

== ENCOUNTER → 2020-05-15 09:59 | Outpatient (CLI) | payer MEDICARE, OTHER ==
[2020-04-23 23:45] VITALS: BMI 43.8
[~2020-05-15 09:59] MED LIST changes: +AMBIEN5 MG PO; +NORVASC5 MG PO; +RANEXA500 MG PO
== END | disposition home or self-care (01) ==
LOC: D.NM 05-06 10:15
PROVIDERS: ATTEND Nurse Practitioner Family
DX: N18.9 Chronic kidney disease, unspecified (principal); I10 Essential (primary) hypertension; Z68.41 Body mass index [BMI] 40.0-44.9, adult; E21.3 Hyperparathyroidism, unspecified

== ENCOUNTER 2020-11-09 15:02 | Emergency (ER) | payer MEDICARE, OTHER ==
[~2020-11-09] VITALS: Ht 157.5 cm; Wt 100.0 kg
[~2020-11-09 15:02] MED LIST changes: +HYDROCODON-ACE1 EA10 PO
[2020-11-09 15:09] VITALS: Ht 157.5 cm; Wt 100.0 kg
[2020-11-09 15:33] LABS: BASOPHILS 0.6 % (0-2); EOSINOPHILS 3.8 % (0-7); HEMATOCRIT 36.4 % (36.0-48.0); HEMOGLOBIN 11.7 g/dL (12-16); LYMPHOCYTE ABS# 2.32 10x3/uL (1.18-3.74); LYMPHOCYTES 21.5 % (15-50); MCH 24.9 pg (26.0-34.0); MCHC 32.1 g/dL (31.0-37.0); MCV 77.6 fL (80.0-100.0); MEAN PLATELET VOLUME 10.2 fL (7.4-10.4); MONOCYTES 4.5 % (2-11); NEUTROPHIL ABS# 7.38 10x3/uL (1.56-6.13); NEUTROPHILS 68.6 % (40-80); PLATELET COUNT 380 10x3/uL (130-400); RBC 4.69 10x6/uL (4.00-5.40); RDW 16.4 % (11.5-14.5); WBC 10.8 10x3/uL (4.8-10.8)
[2020-11-09 15:53] LABS: CALC OSMOLALITY 264 mosm/kg (275-300); CALCIUM 9.3 mg/dL (8.5-10.1); CARBON DIOXIDE 27.8 mmol/L (21.0-32.0); CHLORIDE - SERUM 97 mmol/L (98-107); CREATININE - SERUM 1.5 mg/dL (0.6-1.3); GLUCOSE 100 mg/dL (74-106); SODIUM 131 mmol/L (136-145); UREA NITROGEN 18 mg/dL (7-18); eGFR NON AFRICAN AMERICAN 37 mL/min (90-120)
[2020-11-09 16:01] LABS: ALBUMIN 3.1 g/dL (3.4-5.0); ALKALINE PHOSPHATASE 149 U/L (30-120); ALT (SGPT) 24 U/L (10-68); AMYLASE - SERUM 53 U/L (25-115); BILIRUBIN - TOTAL 0.32 mg/dL (0.2-1.3); LIPASE 99 U/L (73-393); PROTEIN - SERUM 7.5 g/dL (6.4-8.2)
[2020-11-09 16:05] LABS: TROPONIN-I < 0.017 ng/mL (0.000-0.060)
[2020-11-09 16:20] LABS: BILIRUBIN NEGATIVE (NEGATIVE); KETONE NEGATIVE (NEGATIVE); NITRITE NEGATIVE (NEGATIVE); UROBILINOGEN NORMAL mg/dL (< 2)
[2020-11-09] MEDS ORDERED: MIRALAX17 GM PO (18:12)
[2020-11-09 18:33] VITALS: BP 137/77
== END 2020-11-09 18:40 | disposition home or self-care (01) ==
LOC: D.ER 15:02
PROVIDERS: Family Medicine
DX: K59.00 Constipation, unspecified (principal); R10.9 Unspecified abdominal pain; I10 Essential (primary) hypertension; K21.9 Gastro-esophageal reflux disease without esophagitis; R11.2 Nausea with vomiting, unspecified